=== PATIENT | male | born 1960 | race African-American/Black ===

== ENCOUNTER 2016-12-17 14:10 | Observation (INO) | payer MEDICAID, OTHER ==
[~2016-12-17] VITALS: Ht 170.2 cm; Wt 90.7 kg
[~2016-12-17 14:10] MED LIST: ASPI81CH59 PO; CARI-277 PO; CLOP75TA41 PO; DICY10CA55 PO; ENAL2.5T PO; INSUINJ37 SC; LINA5TAB PO; METF-370 PO; METO25TA62 PO; METO5TAB2 PO; NOR10T PO; PANTOPRAZOLE PO; QUET100T46 PO; SERT-274 PO; SIMV-13 PO; SUCR1TAB PO; TRAM50TA2 PO; [UNRECOGNIZED DRUG - CODE] PO
[2016-12-17] MEDS ORDERED: ONDANSETRON HCL 4 MG/2 ML VIAL IV ONE ×2 (14:45→15:15)
[2016-12-17 14:59] LABS: Basophils # (auto) 0 uL; Basophils % (auto) 0.4 % (0.0-2.0); Eosinophils # (auto) 0 uL; Eosinophils % (auto) 0.1 % (0.0-7.0); Hematocrit 38.6 % (41.0-53.0); Hemoglobin 13.2 g/dL (13.5-17.5); Mean Corpuscular Hemoglobin 29.4 pg (28.0-32.0); Mean Corpuscular Hgb Conc. 34.3 g/dL (32.0-36.0); Mean Corpuscular Volume 85.8 fL (80.0-100.0); Mean Platelet Volume 8.8 fL (7.4-10.4); Monocytes # (auto) 0.7 uL; Monocytes % (auto) 7.1 % (0.0-12.0); Neutrophils # (auto) 8.5 uL; Neutrophils % (auto) 82.4 % (37.0-80.0); Nucleated Red Blood Cells % 0.1 %; Platelet Count (auto) 189 10^3/uL (140-450); Red Cell Distribution Width 13.7 % (11.6-16.0); White Blood Cell 10.4 10^3/uL (4.4-10.8)
[2016-12-17] MEDS ORDERED: PANTOPRAZOLE 40 MG/10 ML VIAL IV STA (15:05)
[2016-12-17] MEDS ORDERED: ASPirin 81 mg TAB PO ONE (15:15)
[2016-12-17] MEDS ORDERED: HYDROmorphone HCL 2 MG/ML VL IV ONE (15:15)
[2016-12-17] MEDS ORDERED: cloNIDine HCL 0.1 MG TAB PO ONE (15:15)
[2016-12-17 15:22] LABS: Albumin 4.1 g/dL (3.4-5.0); Alkaline Phosphatase 77 U/L (45-117); Anion Gap 12 (5-15); Aspartate Aminotransferase 15 U/L (15-37); BUN/Creatinine Ratio 7.8; Bilirubin, Total 0.8 mg/dL (0.2-1.0); Blood Urea Nitrogen 9 mg/dL (7-18); Calcium 9.4 mg/dL (8.5-10.1); Carbon Dioxide 29 mmol/L (21-32); Chloride 97 mmol/L (98-107); GFR African American 85 mL/min; GFR Non-African American 70 mL/min; Glucose 271 mg/dL (74-106); Magnesium 2.1 mg/dL (1.6-2.6); Potassium 3.9 mmol/L (3.5-5.1); Sodium 138 mmol/L (136-145); Total Protein 8.1 g/dL (6.4-8.2)
[2016-12-17 15:48] LABS: Amylase 66 U/L (25-115)
[2016-12-17 17:29] LABS: Urine Bilirubin Negative (Negative); Urine Blood 1+ /uL (Negative); Urine Color Yellow (Yellow); Urine Glucose 4+ mg/dL (Normal); Urine Ketone 1+ (Negative); Urine Mucus FEW (None Seen); Urine Nitrite Negative (Negative); Urine RBC 11 /hpf (0 - 3); Urine Urobilinogen Normal (Negative)
[2016-12-17 18:59] VITALS: BP 142/78
== END 2016-12-17 19:14 | disposition home or self-care (01) | DRG 392 ==
LOC: ER 14:11 → OVERFLOW 15:08 → ER 19:14
PROVIDERS: ADMIT Family Medicine; ATTEND Family Medicine
DX: R10.13 Epigastric pain (principal); E86.0 Dehydration; R11.2 Nausea with vomiting, unspecified; F12.10 Cannabis abuse, uncomplicated
CPT/HCPCS: 36415; 71010; 74176; 80053; 80307; 80320; 81001; 82150; 83690; 83735; 84484; 85025; 93005; 96374; 96375; 99285; C9113; G0378; J1170; J2405

== ENCOUNTER 2016-12-18 17:21 | Emergency (ER) | payer OTHER ==
[~2016-12-18] VITALS: Ht 170.2 cm; Wt 90.7 kg
[2016-12-18] MEDS ORDERED: KETOROLAC TROMETH 30 MG/ML 1ML VIAL IV ONE (18:00)
[2016-12-18 18:23] LABS: Basophils # (auto) 0.1 uL; Basophils % (auto) 0.6 % (0.0-2.0); Eosinophils # (auto) 0 uL; Eosinophils % (auto) 0.5 % (0.0-7.0); Hematocrit 37.9 % (41.0-53.0); Hemoglobin 12.9 g/dL (13.5-17.5); Lymphocytes # (auto) 1.6 uL; Lymphocytes % (auto) 16.7 % (10.0-50.0); Mean Corpuscular Hemoglobin 29.5 pg (28.0-32.0); Mean Corpuscular Hgb Conc. 34.1 g/dL (32.0-36.0); Mean Corpuscular Volume 86.7 fL (80.0-100.0); Mean Platelet Volume 8.9 fL (7.4-10.4); Monocytes # (auto) 0.7 uL; Monocytes % (auto) 7.9 % (0.0-12.0); Neutrophils # (auto) 6.9 uL; Neutrophils % (auto) 74.3 % (37.0-80.0); Nucleated Red Blood Cells % 0.1 %; Platelet Count (auto) 185 10^3/uL (140-450); Red Cell Distribution Width 13.4 % (11.6-16.0); White Blood Cell 9.3 10^3/uL (4.4-10.8)
[2016-12-18 18:50] LABS: Albumin 3.7 g/dL (3.4-5.0); BUN/Creatinine Ratio 12.6; Bilirubin, Total 0.9 mg/dL (0.2-1.0); Calcium 8.8 mg/dL (8.5-10.1); Potassium 3.5 mmol/L (3.5-5.1); Total Protein 7.1 g/dL (6.4-8.2)
[2016-12-18] MEDS ORDERED: SODIUM CHLORIDE 0.9% 1,000 ML IV ONE (19:45)
[2016-12-18] MEDS ORDERED: NALBUPHINE HCL 10 MG/1ml INJECTION IV ONE (19:45)
[2016-12-18] MEDS ORDERED: ONDANSETRON HCL 4 MG/2 ML VIAL IV ONE (19:45)
[2016-12-18 22:00] VITALS: BP 174/83
== END 2016-12-18 22:33 | disposition home or self-care (01) ==
LOC: EDBD 17:21 → ER 17:23
DX: K29.70 Gastritis, unspecified, without bleeding (principal); E11.65 Type 2 diabetes mellitus with hyperglycemia; Z88.6 Allergy status to analgesic agent; Z79.82 Long term (current) use of aspirin; Z79.4 Long term (current) use of insulin
CPT/HCPCS: 36415; 80053; 82962; 83690; 85025; 96374; 96375; 99284; J1885; J2300; J2405; J7030

== ENCOUNTER 2022-07-17 03:45 | Inpatient (IN) | payer OTHER, MEDICAID ==
[~2022-07-17] VITALS: Ht 170.2 cm; Wt 95.3 kg
[2022-07-17] VITALS (7 sets, daily range): BP systolic 111–148; BP diastolic 60–85
[~2022-07-17 03:45] MED LIST changes: -CLOP75TA41 PO; +CLOP75TA70 PO; -ENAL2.5T PO; +ENAL2.5T7 PO; -METO25TA62 PO; +METO25TA93 PO; -QUET100T46 PO; +QUET100T47 PO; -SERT-274 PO; +SERT50TA19 PO
[2022-07-17] MEDS ORDERED: MORPHINE SULFATE INJ 2 MG/ml SYRG IV PRN (04:45)
[2022-07-17] MEDS ORDERED: HYDROcodone-ACET 5/325MG TAB PO PRN (04:45)
[2022-07-17] MEDS ORDERED: DEXTROSE (50%) 50ML SYRG IV PRN (04:45)
[2022-07-17] MEDS ORDERED: DOCUSATE SOD 100 MG CAP PO PRN (04:45)
[2022-07-17] MEDS ORDERED: hydrALAZINE HCL 20 MG/ML VL IV PRN (04:45)
[2022-07-17] MEDS ORDERED: IPRATROPIUM BROM 0.5 MG/2.5ML INH SOL NEB PRN (04:45)
[2022-07-17] MEDS ORDERED: ONDANSETRON HCL 4 MG/2 ML VIAL IV PRN (04:45)
[2022-07-17] MEDS ORDERED: NITROGLYCERIN 0.4 MG SL TAB SL PRN (04:45)
[2022-07-17] MEDS ORDERED: ACETAMINOPHEN 325 MG TAB PO PRN (04:45)
[2022-07-17] MEDS ORDERED: PNEUMOCOCCAL VACC POLYS 25 MCG/0.5 ML VIAL IM ONE (05:30)
[2022-07-17] MEDS: methylPREDNISolone SOD SUCC 40 MG/ML VL IV SCH ×3 (06:09→21:43)
[2022-07-17] MEDS: ACCU-CHEK COMFORT CURVE STRIP VI SCH ×4 (06:13→21:43)
[2022-07-17] MEDS: InsuLIN REG 1unit/0.01ml Soln (100units/ml) SC SCH ×4 (06:15→21:47)
[2022-07-17] MEDS ORDERED: LISI40TA11 PO (07:04)
[2022-07-17] MEDS ORDERED: METF-372 PO (07:04)
[2022-07-17] MEDS ORDERED: PERCOT PO (07:04)
[2022-07-17 08:05] LABS: Basophils # (auto) 0 10 ^3/uL (0-0.2); Eosinophils # (auto) 0.4 10 ^3/uL (0-0.8); Eosinophils % (auto) 10.1 % (0.0-7.0); Hematocrit 37.2 % (41.0-53.0); Hemoglobin 12.9 g/dL (13.5-17.5); Lymphocytes # (auto) 0.9 10 ^3/uL (0.4-5.4); Mean Corpuscular Hemoglobin 28.1 pg (28.0-32.0); Mean Corpuscular Hgb Conc. 34.6 g/dL (32.0-36.0); Mean Corpuscular Volume 81.2 fL (80.0-100.0); Monocytes # (auto) 0.4 10 ^3/uL (0-1.3); Monocytes % (auto) 9.4 % (0.0-12.0); Neutrophils # (auto) 2.6 10 ^3/uL (1.6-8.6); Neutrophils % (auto) 58.5 % (37.0-80.0); Nucleated Red Blood Cells % 0.3 %; Red Blood Cells 4.58 10^6/uL (4.5-5.90); Red Cell Distribution Width 15.9 % (11.8-14.3); White Blood Cell 4.4 10^3/uL (4.4-10.8)
[2022-07-17 08:30] LABS: BUN/Creatinine Ratio 9.2 (10.0-20.0); Calcium 8.1 mg/dL (8.5-10.1); Potassium 4.3 mmol/L (3.5-5.1)
[2022-07-17] MEDS ORDERED: METOPROLOL SUCCINATE XL 50 MG TAB PO SCH (10:00)
[2022-07-17] MEDS: PANTOPRAZOLE 40 MG/10 ML VIAL INJ IV SCH (10:47)
[2022-07-17] MEDS: ASPirin 81 mg TAB PO SCH (10:51)
[2022-07-17] MEDS: METOPROLOL TARTRATE 50 MG TAB PO SCH ×2 (10:52→21:43)
[2022-07-17] MEDS: ENOXAPARIN SOD 40 MG/0.4 ML SYRINGE SC SCH (10:53)
[2022-07-17] MEDS: ALBUTEROL SULF 2.5 MG/0.5ML(0.5%) NEB SOLN NEB PRN (11:00)
[2022-07-17 11:52] LABS: INR 1.02 (0.9-1.15)
[2022-07-17] MEDS: HYDROcodone-ACET 7.5/325MG TAB PO PRN (20:14)
[2022-07-17] MEDS: ATORVASTATIN 20 MG TAB PO SCH (21:43)
[2022-07-18 05:00] VITALS: BP 127/69
[2022-07-18 05:40] LABS: Basophils # (auto) 0 10 ^3/uL (0-0.2); Basophils % (auto) 0.2 % (0.0-2.0); Eosinophils # (auto) 0 10 ^3/uL (0-0.8); Hematocrit 36.8 % (41.0-53.0); Hemoglobin 12.4 g/dL (13.5-17.5); Lymphocytes # (auto) 0.8 10 ^3/uL (0.4-5.4); Lymphocytes % (auto) 12.9 % (10.0-50.0); Mean Corpuscular Hgb Conc. 33.6 g/dL (32.0-36.0); Mean Corpuscular Volume 83.4 fL (80.0-100.0); Monocytes # (auto) 0.3 10 ^3/uL (0-1.3); Monocytes % (auto) 5.5 % (0.0-12.0); Neutrophils # (auto) 4.8 10 ^3/uL (1.6-8.6); Neutrophils % (auto) 81.4 % (37.0-80.0); Red Blood Cells 4.42 10^6/uL (4.5-5.90); Red Cell Distribution Width 15.8 % (11.8-14.3); White Blood Cell 5.9 10^3/uL (4.4-10.8)
[2022-07-18 05:49] LABS: BUN/Creatinine Ratio 17.1 (10.0-20.0); Calcium 8.6 mg/dL (8.5-10.1); Potassium 5.1 mmol/L (3.5-5.1)
[2022-07-18] MEDS: methylPREDNISolone SOD SUCC 40 MG/ML VL IV SCH (06:12)
[2022-07-18] MEDS: HYDROcodone-ACET 7.5/325MG TAB PO PRN ×2 (06:12→21:36)
[2022-07-18] MEDS: ACCU-CHEK COMFORT CURVE STRIP VI SCH ×4 (06:16→21:32)
[2022-07-18] MEDS: InsuLIN REG 1unit/0.01ml Soln (100units/ml) SC SCH ×4 (06:18→21:34)
[2022-07-18 08:00] VITALS: BP 154/84
[2022-07-18] MEDS: ASPirin 81 mg TAB PO SCH (09:19)
[2022-07-18] MEDS: PANTOPRAZOLE 40 MG/10 ML VIAL INJ IV SCH (09:19)
[2022-07-18] MEDS: METOPROLOL TARTRATE 50 MG TAB PO SCH ×2 (09:20→21:32)
[2022-07-18] MEDS: ENOXAPARIN SOD 40 MG/0.4 ML SYRINGE SC SCH (09:20)
[2022-07-18 12:00] VITALS: BP 143/72
[2022-07-18 16:00] VITALS: BP 133/68
[2022-07-18] MEDS: ATORVASTATIN 20 MG TAB PO SCH (21:32)
[2022-07-18 22:00] VITALS: BP 162/89
[2022-07-19 05:00] VITALS: BP 136/81
[2022-07-19 06:04] LABS: Basophils # (auto) 0.1 10 ^3/uL (0-0.2); Basophils % (auto) 0.7 % (0.0-2.0); Eosinophils # (auto) 0.1 10 ^3/uL (0-0.8); Eosinophils % (auto) 1.2 % (0.0-7.0); Hemoglobin 12.4 g/dL (13.5-17.5); Lymphocytes # (auto) 2.6 10 ^3/uL (0.4-5.4); Lymphocytes % (auto) 30.9 % (10.0-50.0); Mean Corpuscular Hemoglobin 27.9 pg (28.0-32.0); Mean Corpuscular Hgb Conc. 34.5 g/dL (32.0-36.0); Mean Corpuscular Volume 80.8 fL (80.0-100.0); Monocytes # (auto) 0.8 10 ^3/uL (0-1.3); Monocytes % (auto) 9.3 % (0.0-12.0); Neutrophils % (auto) 57.9 % (37.0-80.0); Nucleated Red Blood Cells % 1.1 %; Red Blood Cells 4.46 10^6/uL (4.5-5.90); Red Cell Distribution Width 16.1 % (11.8-14.3); White Blood Cell 8.6 10^3/uL (4.4-10.8)
[2022-07-19 06:22] LABS: Potassium 4.3 mmol/L (3.5-5.1)
[2022-07-19] MEDS: ACCU-CHEK COMFORT CURVE STRIP VI SCH ×2 (06:22→11:58)
[2022-07-19] MEDS: InsuLIN REG 1unit/0.01ml Soln (100units/ml) SC SCH (06:22)
[2022-07-19 06:26] LABS: BUN/Creatinine Ratio 17.2 (10.0-20.0); Calcium 8.4 mg/dL (8.5-10.1)
[2022-07-19] MEDS ORDERED: IPRATROPIUM BROM 0.5 MG/2.5ML INH SOL ONE (07:22)
[2022-07-19] MEDS ORDERED: ALBUTEROL SULF 2.5 MG/0.5ML(0.5%) NEB SOLN ONE ×2 (07:23→11:33)
[2022-07-19] MEDS: ALBUTEROL SULF 2.5 MG/0.5ML(0.5%) NEB SOLN NEB PRN (07:28)
[2022-07-19 09:00] VITALS: BP 146/79
[2022-07-19] MEDS: ASPirin 81 mg TAB PO SCH (10:00)
[2022-07-19] MEDS ORDERED: NICOTINE 7MG/24HR TOPICAL PATCH TD SCH ×2 (10:00→13:35)
[2022-07-19] MEDS ORDERED: predniSONE 20 MG TAB PO SCH (10:00)
[2022-07-19] MEDS: ENOXAPARIN SOD 40 MG/0.4 ML SYRINGE SC SCH (10:00)
[2022-07-19] MEDS: METOPROLOL TARTRATE 50 MG TAB PO SCH (10:00)
[2022-07-19] MEDS ORDERED: ANGIOMAX 250 MG VIAL IV ONE (10:18)
[2022-07-19] MEDS ORDERED: VERAPAMIL 2.5MG/ML INJ 2ML VIAL IV ONE (10:18)
[2022-07-19] MEDS ORDERED: HEPARIN SODIUM (PORCINE) 5000 UNITS/ML 1ML VIAL ONE (10:18)
[2022-07-19] MEDS ORDERED: fentaNYL CITRATE 100 MCG/2 ML VL ONE (10:18)
[2022-07-19] MEDS ORDERED: SODIUM CHL 0.9% 0 ML ONE (10:19)
[2022-07-19] MEDS ORDERED: IODIXANOL 320MG/ML 100ML BTL IV ONE (10:19)
[2022-07-19] MEDS ORDERED: MIDAZOLAM HCL 2MG/2ML 2ml VIAL (1mg/ml) ONE (10:19)
[2022-07-19] MEDS ORDERED: LIDOCAINE 2%HCL (LOCAL ANESTH.) INJ 10ml MDV ONE (10:20)
[2022-07-19] MEDS ORDERED: ALBUAER3 IN (10:30)
[2022-07-19] MEDS ORDERED: PRED20TA2 PO (10:30)
[2022-07-19] MEDS ORDERED: ATOR20TA50 PO (10:30)
[2022-07-19] MEDS ORDERED: MET50T PO (10:30)
[2022-07-19 11:25] VITALS: BP 160/92
[2022-07-19 11:45] VITALS: BP 161/96
[2022-07-19 12:06] LABS: Hepatitis C Antibody Negative (Negative)
[2022-07-19 13:00] VITALS: BP 153/79
[2022-07-19] MEDS ORDERED: InsuLIN REG 1unit/0.01ml Soln (100units/ml) SC SCH (13:00)
[2022-07-19] MEDS ORDERED: PANTOPRAZOLE 40 MG/10 ML VIAL INJ IV SCH (13:35)
[2022-07-20] MEDS ORDERED: predniSONE 20 MG TAB PO SCH (13:35)
== END 2022-07-19 15:30 | disposition left against medical advice (07) | DRG 281 ==
LOC: TELE-EAST 03:45 → UNDOADMIN 03:45 → TELE-EAST 04:43 → OBSVTOIN 07-19 11:13
PROVIDERS: ADMIT Nurse Practitioner Family; ATTEND Internal Medicine
PROC: B211YZZ Fluoroscopy of Multiple Coronary Arteries using Other Contrast (ICD-10-PCS; principal; 2022-07-19)
DX: I21.4 Non-ST elevation (NSTEMI) myocardial infarction (principal); J44.1 Chronic obstructive pulmonary disease with (acute) exacerbation; I25.10 Atherosclerotic heart disease of native coronary artery without angina pectoris; E78.5 Hyperlipidemia, unspecified; E11.9 Type 2 diabetes mellitus without complications; F41.9 Anxiety disorder, unspecified; F32.9 Major depressive disorder, single episode, unspecified; I10 Essential (primary) hypertension; Z20.822 Contact with and (suspected) exposure to COVID-19; Z79.899 Other long term (current) drug therapy; Z53.21 Procedure and treatment not carried out due to patient leaving prior to being seen by health care provider
CPT/HCPCS: 36415; 71045; 80048; 82962; 84484; 85025; 85610; 86803; 87340; 87426; 93306; 93454; 94640; 99152; C9113; G0378; J1815; J2001; J2250; Q9967

== ENCOUNTER 2022-12-10 02:33 | Inpatient (IN) | payer MEDICAID, OTHER ==
[~2022-12-10] VITALS: Ht 170.2 cm; Wt 90.0 kg
[2022-12-10] VITALS (12 sets, daily range): BP systolic 141–154; BP diastolic 72–92; PULSE 52–98; RESP 14–20; TEMP 97.8–98.6; O2SAT 93–98
[~2022-12-10 02:33] MED LIST changes: +ALBUAER3 IN; +ATOR20TA50 PO; +ENAL1TAB42 PO; -ENAL2.5T7 PO; +MET50T PO; -METF-370 PO; +METF-372 PO; -NOR10T PO; +PRED20TA2 PO; +SERT-206 PO; -SERT50TA19 PO; -SIMV-13 PO; +SIMV40TA18 PO; -[UNRECOGNIZED DRUG - CODE] PO
[2022-12-10] MEDS ORDERED: hydrALAZINE HCL 20 MG/ML VL IV PRN (06:00)
[2022-12-10] MEDS ORDERED: DOCUSATE SOD 100 MG CAP PO PRN (06:00)
[2022-12-10] MEDS ORDERED: ACETAMINOPHEN 325 MG TAB PO PRN (06:00)
[2022-12-10] MEDS ORDERED: IPRATROPIUM BROM 0.5 MG/2.5ML INH SOL NEB PRN (06:00)
[2022-12-10] MEDS ORDERED: METOCLOPRAMIDE HCL 5MG/ml INJ 2ml VIAL IV PRN (06:00)
[2022-12-10] MEDS ORDERED: MORPHINE SULFATE INJ 2 MG/ml SYRG IV PRN (06:00)
[2022-12-10] MEDS ORDERED: ALBUTEROL SULF 2.5 MG/0.5ML(0.5%) NEB SOLN NEB PRN (06:00)
[2022-12-10] MEDS ORDERED: NITROGLYCERIN 0.4 MG SL TAB SL PRN (06:00)
[2022-12-10] MEDS ORDERED: DEXTROSE (50%) 50ML SYRG IV PRN (06:00)
[2022-12-10 07:07] LABS: Amphetamine Screen, Urine Neg (NEGATIVE)
[2022-12-10 07:08] LABS: Barbiturate Scree,Urine Neg (NEGATIVE); Benzodiazephine Screen, Urine Neg (NEGATIVE); Cannabinoid Screen, Urine Neg (NEGATIVE); Cocaine Screen, Urine Neg (NEGATIVE); Opiate Scree,Urine Neg (NEGATIVE); Phencyclidine Screen, Urine Neg (NEGATIVE)
[2022-12-10] MEDS: InsuLIN REG 1unit/0.01ml Soln (100units/ml) SC SCH ×3 (07:46→17:08)
[2022-12-10] MEDS: ACCU-CHEK COMFORT CURVE STRIP VI SCH ×4 (07:46→22:19)
[2022-12-10 07:53] LABS: Basophils # (auto) 0 10 ^3/uL (0-0.2); Basophils % (auto) 0.9 % (0.0-2.0); Eosinophils # (auto) 0.3 10 ^3/uL (0-0.8); Eosinophils % (auto) 5.9 % (0.0-7.0); Hematocrit 39.4 % (41.0-53.0); Lymphocytes % (auto) 44.8 % (10.0-50.0); Mean Corpuscular Hemoglobin 29.9 pg (28.0-32.0); Mean Corpuscular Volume 90.5 fL (80.0-100.0); Monocytes # (auto) 0.5 10 ^3/uL (0-1.3); Monocytes % (auto) 10.2 % (0.0-12.0); Neutrophils # (auto) 1.7 10 ^3/uL (1.6-8.6); Neutrophils % (auto) 38.2 % (37.0-80.0); Nucleated Red Blood Cells % 0.1 %; Red Blood Cells 4.35 10^6/uL (4.5-5.90); Red Cell Distribution Width 15.5 % (11.8-14.3); White Blood Cell 4.5 10^3/uL (4.4-10.8)
[2022-12-10 08:29] LABS: Albumin 3.3 g/dL (3.2-4.8); Alkaline Phosphatase 84 U/L (46-116); Anion Gap 9.9 (5-15); Aspartate Aminotransferase 11 U/L (13-40); BUN/Creatinine Ratio 8.2 (10.0-20.0); Bilirubin, Total 0.6 mg/dL (0.2-1.0); Blood Urea Nitrogen 8 mg/dL (9-23); Calcium 8.4 mg/dL (8.5-10.1); Carbon Dioxide 23.1 mmol/L (20-30); Chloride 109 mmol/L (98-107); Glucose 135 mg/dL (74-106); Potassium 4.1 mmol/L (3.5-5.1); Sodium 142 mmol/L (136-145); Total Protein 5.7 g/dL (5.7-8.2)
[2022-12-10 08:32] LABS: Alanine Aminotransferase 9 U/L (7-40)
[2022-12-10] MEDS: PANTOPRAZOLE 40 MG/10 ML VIAL INJ IV SCH (09:58)
[2022-12-10] MEDS: ASPirin-EC 81 mg tab PO SCH (09:59)
[2022-12-10] MEDS: METOPROLOL TARTRATE 50 MG TAB PO SCH ×2 (09:59→22:17)
[2022-12-10] MEDS: ENOXAPARIN SOD 100 MG/1 ML SYRINGE SC SCH ×2 (10:35→22:19)
[2022-12-10] MEDS ORDERED: IODIXANOL 320MG/ML 100ML BTL IV ONE (13:51)
[2022-12-10] MEDS ORDERED: LIDOCAINE 2%HCL (LOCAL ANESTH.) INJ 20ML MDV ONE (13:52)
[2022-12-10] MEDS ORDERED: ANGIOMAX 250 MG VIAL IV ONE (15:04)
[2022-12-10] MEDS ORDERED: HEPARIN SODIUM (PORCINE) 5000 UNITS/ML 1ML VIAL ONE (15:04)
[2022-12-10] MEDS ORDERED: VERAPAMIL 2.5MG/ML INJ 2ML VIAL IV ONE (15:04)
[2022-12-10] MEDS ORDERED: fentaNYL CITRATE 100 MCG/2 ML VL ONE (15:05)
[2022-12-10] MEDS ORDERED: MIDAZOLAM HCL 2MG/2ML 2ml VIAL (1mg/ml) ONE (15:05)
[2022-12-10] MEDS ORDERED: IOHEXOL 350 MG/ML 100ML IJ ONE (15:05)
[2022-12-10] MEDS ORDERED: SODIUM CHL 0.9% 50 ML ONE (15:05)
[2022-12-10] MEDS ORDERED: ATORVASTATIN 20 MG TAB PO SCH (22:00)
[2022-12-10] MEDS ORDERED: InsuLIN REG 1unit/0.01ml Soln (100units/ml) SC SCH (22:00)
[2022-12-10] MEDS: HYDROcodone-ACET 5/325MG TAB PO PRN (22:18)
[2022-12-11] VITALS (7 sets, daily range): BP systolic 156–162; BP diastolic 84–85; PULSE 52–62; RESP 12–18; TEMP 97.4–98.4; O2SAT 99–100
[2022-12-11] MEDS: HYDROcodone-ACET 5/325MG TAB PO PRN ×2 (05:20→09:40)
[2022-12-11] MEDS: ACCU-CHEK COMFORT CURVE STRIP VI SCH ×2 (06:10→11:08)
[2022-12-11] MEDS: InsuLIN REG 1unit/0.01ml Soln (100units/ml) SC SCH ×2 (06:15→11:11)
[2022-12-11 06:45] LABS: Basophils # (auto) 0 10 ^3/uL (0-0.2); Basophils % (auto) 0.5 % (0.0-2.0); Eosinophils # (auto) 0.2 10 ^3/uL (0-0.8); Eosinophils % (auto) 3.1 % (0.0-7.0); Hematocrit 38.8 % (41.0-53.0); Hemoglobin 12.8 g/dL (13.5-17.5); Lymphocytes # (auto) 2.1 10 ^3/uL (0.4-5.4); Mean Corpuscular Hemoglobin 29.8 pg (28.0-32.0); Mean Corpuscular Hgb Conc. 32.9 g/dL (32.0-36.0); Mean Corpuscular Volume 90.5 fL (80.0-100.0); Monocytes # (auto) 0.6 10 ^3/uL (0-1.3); Monocytes % (auto) 8.4 % (0.0-12.0); Nucleated Red Blood Cells % 0.1 %; Red Blood Cells 4.29 10^6/uL (4.5-5.90); Red Cell Distribution Width 15.6 % (11.8-14.3); White Blood Cell 6.9 10^3/uL (4.4-10.8)
[2022-12-11 07:44] LABS: Anion Gap 8.7 (5-15); Carbon Dioxide 22.3 mmol/L (20-30); Chloride 108 mmol/L (98-107); Potassium 3.8 mmol/L (3.5-5.1); Sodium 139 mmol/L (136-145)
[2022-12-11 07:45] LABS: Calcium 8.7 mg/dL (8.5-10.1)
[2022-12-11 07:50] LABS: Glucose 210 mg/dL (74-106)
[2022-12-11 07:51] LABS: BUN/Creatinine Ratio 8.7 (10.0-20.0); Blood Urea Nitrogen 10 mg/dL (9-23)
[2022-12-11] MEDS: METOPROLOL TARTRATE 50 MG TAB PO SCH (09:39)
[2022-12-11] MEDS: ASPirin-EC 81 mg tab PO SCH (09:40)
[2022-12-11] MEDS: PANTOPRAZOLE 40 MG/10 ML VIAL INJ IV SCH (09:40)
[2022-12-11] MEDS: ENOXAPARIN SOD 100 MG/1 ML SYRINGE SC SCH (09:40)
[2022-12-11] MEDS ORDERED: RANO500T3 PO (12:48)
== END 2022-12-11 16:07 | disposition home or self-care (01) | DRG 282 ==
LOC: TELE-CENTR 05:28
PROVIDERS: ADMIT Nurse Practitioner Family; ATTEND Internal Medicine
PROC: B211YZZ Fluoroscopy of Multiple Coronary Arteries using Other Contrast (ICD-10-PCS; principal; 2022-12-10)
PROC: 4A023N7 Measurement of Cardiac Sampling and Pressure, Left Heart, Percutaneous Approach (ICD-10-PCS; 2022-12-10)
DX: I21.4 Non-ST elevation (NSTEMI) myocardial infarction (principal); E11.65 Type 2 diabetes mellitus with hyperglycemia; I11.0 Hypertensive heart disease with heart failure; J44.9 Chronic obstructive pulmonary disease, unspecified; E66.9 Obesity, unspecified; I25.10 Atherosclerotic heart disease of native coronary artery without angina pectoris; G89.29 Other chronic pain; I50.9 Heart failure, unspecified; M54.50 Low back pain, unspecified; R79.89 Other specified abnormal findings of blood chemistry; F10.20 Alcohol dependence, uncomplicated; I25.2 Old myocardial infarction; Z79.899 Other long term (current) drug therapy; Z80.3 Family history of malignant neoplasm of breast; Z82.49 Family history of ischemic heart disease and other diseases of the circulatory system; Z83.3 Family history of diabetes mellitus; Z86.73 Personal history of transient ischemic attack (TIA), and cerebral infarction without residual deficits; Z91.199 Patient's noncompliance with other medical treatment and regimen due to unspecified reason; Z98.61 Coronary angioplasty status; Z88.0 Allergy status to penicillin; Z88.5 Allergy status to narcotic agent; Z68.31 Body mass index [BMI] 31.0-31.9, adult
CPT/HCPCS: 36415; 80048; 80053; 80307; 82962; 83036; 84484; 85025; 87081; 93306; 93454; 99152; C9113; G0378; J1815; J2250; Q9967

== ENCOUNTER 2023-05-03 04:04 | Emergency (ER) | payer OTHER, MEDICAID ==
[~2023-05-03] VITALS: Ht 170.2 cm; Wt 84.0 kg
[~2023-05-03 04:04] MED LIST changes: +RANO500T3 PO
[2023-05-03 06:28] LABS: Eosinophils # (auto) 0.5 10 ^3/uL (0-0.8); Hemoglobin 11.2 g/dL (13.5-17.5); Neutrophils # (auto) 3.9 10 ^3/uL (1.6-8.6)
[2023-05-03 06:29] VITALS: BP 158/100; PULSE 82; RESP 13; TEMP 98.3; O2SAT 98
[2023-05-03 06:29] LABS: Chloride 108 mmol/L (98-107); Potassium 4.1 mmol/L (3.5-5.1); Sodium 142 mmol/L (136-145)
[2023-05-03 06:30] LABS: Anion Gap 7 (5-15); Calcium 8.8 mg/dL (8.5-10.1); Carbon Dioxide 27 mmol/L (20-30)
[2023-05-03] MEDS ORDERED: FUROSEMIDE 40 MG/4 ML VIAL IV ONE (06:30)
[2023-05-03 06:32] LABS: Basophils # (auto) 0.1 10 ^3/uL (0-0.2); Basophils % (auto) 0.8 % (0.0-2.0); Eosinophils % (auto) 6.7 % (0.0-7.0); Hematocrit 34.1 % (41.0-53.0); Lymphocytes # (auto) 2.3 10 ^3/uL (0.4-5.4); Mean Corpuscular Hgb Conc. 32.7 g/dL (32.0-36.0); Mean Corpuscular Volume 82.4 fL (80.0-100.0); Monocytes # (auto) 0.6 10 ^3/uL (0-1.3); Monocytes % (auto) 7.8 % (0.0-12.0); Neutrophils % (auto) 53.7 % (37.0-80.0); Red Blood Cells 4.14 10^6/uL (4.5-5.90); Red Cell Distribution Width 17.4 % (11.8-14.3); White Blood Cell 7.3 10^3/uL (4.4-10.8)
[2023-05-03 06:35] LABS: BUN/Creatinine Ratio 7.1 (10.0-20.0); Blood Urea Nitrogen 9 mg/dL (9-23); Glucose 245 mg/dL (74-106)
[2023-05-03 06:49] VITALS: PULSE 93
== END 2023-05-03 17:53 | disposition left against medical advice (07) ==
LOC: ER 04:04
DX: I11.0 Hypertensive heart disease with heart failure (principal); I50.33 Acute on chronic diastolic (congestive) heart failure; R10.84 Generalized abdominal pain; E78.5 Hyperlipidemia, unspecified; E11.9 Type 2 diabetes mellitus without complications; K21.9 Gastro-esophageal reflux disease without esophagitis; I25.10 Atherosclerotic heart disease of native coronary artery without angina pectoris; F32.9 Major depressive disorder, single episode, unspecified; F17.210 Nicotine dependence, cigarettes, uncomplicated; Z98.890 Other specified postprocedural states; Z88.8 Allergy status to other drugs, medicaments and biological substances; Z79.899 Other long term (current) drug therapy
CPT/HCPCS: 36415; 71045; 80048; 83880; 84484; 85025; 93005; 96374; 99285; J1940

== ENCOUNTER 2023-07-12 03:46 | Inpatient (IN) | payer OTHER, MEDICAID ==
[~2023-07-12] VITALS: Ht 170.2 cm; Wt 100.1 kg
[2023-07-12 04:19] LABS: Basophils # (auto) 0.1 10 ^3/uL (0-0.2); Eosinophils # (auto) 0.6 10 ^3/uL (0-0.8); Eosinophils % (auto) 9.2 % (0.0-7.0); Hematocrit 32.4 % (41.0-53.0); Hemoglobin 10.8 g/dL (13.5-17.5); Lymphocytes # (auto) 2.4 10 ^3/uL (0.4-5.4); Lymphocytes % (auto) 34.2 % (10.0-50.0); Mean Corpuscular Hemoglobin 27.6 pg (28.0-32.0); Mean Corpuscular Hgb Conc. 33.4 g/dL (32.0-36.0); Mean Corpuscular Volume 82.5 fL (80.0-100.0); Monocytes # (auto) 0.5 10 ^3/uL (0-1.3); Monocytes % (auto) 7.1 % (0.0-12.0); Neutrophils # (auto) 3.4 10 ^3/uL (1.6-8.6); Neutrophils % (auto) 48.5 % (37.0-80.0); Nucleated Red Blood Cells % 0.1 %; Red Blood Cells 3.93 10^6/uL (4.5-5.90); Red Cell Distribution Width 14.9 % (11.8-14.3); White Blood Cell 6.9 10^3/uL (4.4-10.8)
[2023-07-12 04:32] LABS: Albumin 3.5 g/dL (3.2-4.8); Alkaline Phosphatase 76 U/L (46-116); Anion Gap 5 (5-15); Aspartate Aminotransferase 17 U/L (13-40); Bilirubin, Total 0.7 mg/dL (0.2-1.0); Blood Urea Nitrogen 12 mg/dL (9-23); Carbon Dioxide 26 mmol/L (20-30); Chloride 110 mmol/L (98-107); Glucose 130 mg/dL (74-106); Magnesium 1.6 mg/dL (1.6-2.6); Potassium 3.6 mmol/L (3.5-5.1); Sodium 141 mmol/L (136-145); Total Protein 6.2 g/dL (5.7-8.2)
[2023-07-12 04:38] LABS: Alanine Aminotransferase 9 U/L (7-40)
[2023-07-12 04:44] LABS: INR 1.13 (0.9-1.15); Partial Thromboplastin Time 28.2 SEC (24.5-34.5); Prothrombin Time 11.8 sec (9.3-11.8)
[2023-07-12] MEDS: FUROSEMIDE 40 MG/4 ML VIAL IV ONE (06:48)
[2023-07-12] MEDS ORDERED: ONDANSETRON HCL 4 MG/2 ML VIAL IV PRN (20:30)
[2023-07-12] MEDS ORDERED: ACETAMINOPHEN 325 MG TAB PO PRN (20:30)
[2023-07-12] MEDS ORDERED: MORPHINE SULFATE INJ 2 MG/ml SYRG IV PRN (20:30)
[2023-07-12] MEDS ORDERED: NITROGLYCERIN 0.4 MG SL TAB SL PRN (20:30)
[2023-07-12] MEDS: HYDROcodone-ACET 5/325MG TAB PO PRN (21:20)
[2023-07-12] MEDS: FUROSEMIDE 40 MG/4 ML VIAL IV SCH (21:20)
[2023-07-12 23:42] VITALS: PULSE 72; RESP 18
[2023-07-13] VITALS (7 sets, daily range): BP systolic 136–149; BP diastolic 83–96; PULSE 67–75; RESP 17–20; TEMP 97.3–98.1; O2SAT 95–98
[2023-07-13] MEDS: ASPirin 81 mg TAB PO SCH (00:40)
[2023-07-13] MEDS: MELATONIN 5 MG TAB PO PRN (00:40)
[2023-07-13 07:34] LABS: Anion Gap 6 (5-15); Carbon Dioxide 27 mmol/L (20-30); Chloride 108 mmol/L (98-107); Potassium 3.8 mmol/L (3.5-5.1); Sodium 141 mmol/L (136-145)
[2023-07-13 07:35] LABS: Calcium 8.6 mg/dL (8.5-10.1)
[2023-07-13 07:40] LABS: BUN/Creatinine Ratio 12.3 (10.0-20.0); Blood Urea Nitrogen 16 mg/dL (9-23); Glucose 104 mg/dL (74-106)
[2023-07-13] MEDS ORDERED: ASPirin 81 mg TAB PO SCH (10:00)
[2023-07-13] MEDS: PANTOPRAZOLE 40 MG/10 ML VIAL INJ IV SCH (11:15)
[2023-07-13] MEDS: ENOXAPARIN SOD 40 MG/0.4 ML SYRINGE SC SCH (11:15)
[2023-07-13] MEDS: ATORVASTATIN 20 MG TAB PO SCH (20:59)
[2023-07-14 01:00] VITALS: BP 110/71; PULSE 99; RESP 20; TEMP 97.5; O2SAT 95
[2023-07-14 05:00] VITALS: BP 130/75; PULSE 79; RESP 20; TEMP 97.6; O2SAT 96
[2023-07-14 07:04] LABS: Chloride 108 mmol/L (98-107); Potassium 3.8 mmol/L (3.5-5.1); Sodium 142 mmol/L (136-145)
[2023-07-14 07:06] LABS: Calcium 8.8 mg/dL (8.5-10.1)
[2023-07-14 07:10] LABS: Glucose 131 mg/dL (74-106)
[2023-07-14 07:11] LABS: BUN/Creatinine Ratio 12.9 (10.0-20.0); Blood Urea Nitrogen 16 mg/dL (9-23)
[2023-07-14 07:47] LABS: Anion Gap 4 (5-15); Carbon Dioxide 30 mmol/L (20-30)
[2023-07-14 08:00] VITALS: PULSE 76
[2023-07-14 08:25] VITALS: BP 140/90; PULSE 75; RESP 20; TEMP 97.7; O2SAT 98
[2023-07-14 09:13] LABS: Hepatitis B Surface Antigen Negative (Negative)
[2023-07-14 09:34] LABS: Hepatitis C Antibody Negative (Negative)
[2023-07-14] MEDS: hydrALAZINE HCL 20 MG/ML VL IV PRN (11:54)
[2023-07-14 12:30] VITALS: BP 152/93; PULSE 77; RESP 20; TEMP 98; O2SAT 99
[2023-07-14] MEDS ORDERED: FURO1TAB31 PO (15:53)
[2023-07-14 16:20] VITALS: BP 144/89; PULSE 80; RESP 20; TEMP 97.6; O2SAT 98
== END 2023-07-14 19:00 | disposition home or self-care (01) | DRG 291 ==
LOC: ER 03:46 → TELE-WESTW 20:31 → TELE 20:31 → TELE-WESTW 23:36
PROVIDERS: ADMIT Nurse Practitioner Family; ATTEND Nurse Practitioner Family
DX: I11.0 Hypertensive heart disease with heart failure (principal); I50.43 Acute on chronic combined systolic (congestive) and diastolic (congestive) heart failure; I25.10 Atherosclerotic heart disease of native coronary artery without angina pectoris; E78.5 Hyperlipidemia, unspecified; E11.9 Type 2 diabetes mellitus without complications; K21.9 Gastro-esophageal reflux disease without esophagitis; Z79.4 Long term (current) use of insulin; Z79.84 Long term (current) use of oral hypoglycemic drugs; Z80.3 Family history of malignant neoplasm of breast; Z86.73 Personal history of transient ischemic attack (TIA), and cerebral infarction without residual deficits; Z82.49 Family history of ischemic heart disease and other diseases of the circulatory system; Z83.3 Family history of diabetes mellitus; Z87.11 Personal history of peptic ulcer disease; Z87.891 Personal history of nicotine dependence
CPT/HCPCS: 36415; 71045; 80048; 80053; 83735; 83880; 84484; 85025; 85610; 85730; 86803; 87340; 93005; 93306; 96374; C9113; G0378

== ENCOUNTER 2024-01-25 11:45 | Inpatient (IN) | payer OTHER, MEDICAID ==
[~2024-01-25] VITALS: Ht 182.9 cm; Wt 100.3 kg
[2024-01-25] VITALS (36 sets, daily range): BP systolic 89–150; BP diastolic 44–81; PULSE 61–87; RESP 11–27; TEMP 91.6–97.7; O2SAT 92–100
[~2024-01-25 11:45] MED LIST changes: +FURO1TAB31 PO; -MET50T PO; -PRED20TA2 PO
[2024-01-25] MEDS ORDERED: DOBUTamine 1000MCG/ML 250 ML IV SCH (12:00)
[2024-01-25] MEDS: DOBUTamine 1000MCG/ML 250 ML IV ONE (12:15)
[2024-01-25] MEDS: IOHEXOL 350 MG/ML 100ML IJ ONE (12:16)
[2024-01-25] MEDS: DOPamine 1600MCG/ML D5W 250 ML IV ONE ×2 (12:16→16:44)
[2024-01-25] MEDS: DOPamine 1600MCG/ML D5W 250 ML IV SCH (12:25)
[2024-01-25 12:32] LABS: Basophils # (auto) 0 10 ^3/uL (0-0.2); Basophils % (auto) 0.7 % (0.0-2.0); Eosinophils # (auto) 0.4 10 ^3/uL (0-0.8); Eosinophils % (auto) 6.4 % (0.0-7.0); Hematocrit 34.3 % (41.0-53.0); Hemoglobin 11.9 g/dL (13.5-17.5); Lymphocytes # (auto) 1.8 10 ^3/uL (0.4-5.4); Lymphocytes % (auto) 27.4 % (10.0-50.0); Mean Corpuscular Hemoglobin 29.4 pg (28.0-32.0); Mean Corpuscular Hgb Conc. 34.7 g/dL (32.0-36.0); Mean Corpuscular Volume 84.7 fL (80.0-100.0); Monocytes # (auto) 0.4 10 ^3/uL (0-1.3); Monocytes % (auto) 5.5 % (0.0-12.0); Platelet Count (auto) 149 10^3/uL (140-450); Red Blood Cells 4.05 10^6/uL (4.5-5.90); Red Cell Distribution Width 13.6 % (11.8-14.3); White Blood Cell 6.7 10^3/uL (4.4-10.8)
[2024-01-25 12:42] LABS: Alanine Aminotransferase 18 U/L (7-40); Albumin 3.6 g/dL (3.2-4.8); Alkaline Phosphatase 78 U/L (46-116); Anion Gap 7 (5-15); Aspartate Aminotransferase 20 U/L (13-40); BUN/Creatinine Ratio 7.4 (10.0-20.0); Blood Urea Nitrogen 14 mg/dL (9-23); Calcium 9.1 mg/dL (8.7-10.4); Carbon Dioxide 25 mmol/L (20-31); Chloride 104 mmol/L (98-107); Glucose 374 mg/dL (74-106); Lactic Acid w/Reflex 2.1 mmol/L (0.4-2.0); Sodium 136 mmol/L (136-145)
[2024-01-25 12:43] LABS: Bilirubin, Total 1.2 mg/dL (0.2-1.0)
[2024-01-25 12:45] LABS: INR 1.03 (0.9-1.15); Partial Thromboplastin Time 25.6 SEC (24.5-34.5); Prothrombin Time 10.9 sec (9.3-11.8)
[2024-01-25] MEDS: fentaNYL CITRATE 100 MCG/2 ML VL IV ONE ×2 (12:53→13:30)
[2024-01-25] MEDS: ALBUTEROL SULF 2.5 MG/0.5ML(0.5%) NEB SOLN NEB ONE (13:00)
[2024-01-25] MEDS: IPRATROPIUM BROM 0.5 MG/2.5ML INH SOL NEB ONE (13:00)
[2024-01-25] MEDS: IPRATROPIUM BROM 0.5 MG/2.5ML INH SOL ONE (13:14)
[2024-01-25] MEDS: ALBUTEROL SULF 2.5 MG/0.5ML(0.5%) NEB SOLN ONE (13:14)
[2024-01-25] MEDS: KETOROLAC TROMETH 30 MG/ML 1ML VIAL ONE (13:36)
[2024-01-25] MEDS: KETOROLAC TROMETH 30 MG/ML 1ML VIAL IV ONE (13:36)
[2024-01-25] MEDS: ONDANSETRON HCL 4 MG/2 ML VIAL IV ONE (14:29)
[2024-01-25] MEDS: SODIUM CHL 0.9% 50 ML ONE ×2 (14:40→16:19)
[2024-01-25] MEDS: HEPARIN SODIUM (PORCINE) 5000 UNITS/ML 1ML VIAL ONE (14:40)
[2024-01-25] MEDS: ANGIOMAX 250 MG VIAL IV ONE ×3 (14:40→17:18)
[2024-01-25] MEDS: VERAPAMIL 2.5MG/ML INJ 2ML VIAL IV ONE (14:40)
[2024-01-25] MEDS: LIDOCAINE 2%HCL (LOCAL ANESTH.) INJ 20ML MDV ONE (14:45)
[2024-01-25] MEDS: IODIXANOL 320MG/ML 100ML BTL IV ONE ×2 (14:53→15:55)
[2024-01-25] MEDS: fentaNYL CITRATE 100 MCG/2 ML VL ONE (15:15)
[2024-01-25] MEDS: NOREPINEPHRINE 8 MG/250ML KIT 250 ML IV ONE (15:18)
[2024-01-25] MEDS: VANCOMYCIN HCL 1000 MG VL ONE (15:24)
[2024-01-25] MEDS: VANCOMYCIN 1GM/200ML PREMIX 250 ML IV ONE ×2 (15:25→18:10)
[2024-01-25] MEDS: CLOPIDOGREL BISULFATE 75 MG TAB ONE (15:54)
[2024-01-25] MEDS: MIDAZOLAM HCL 2MG/2ML 2ml VIAL (1mg/ml) ONE (15:55)
[2024-01-25 16:03] LABS: Base Excess -5.4 mmol/L (-2.0-3.0)
[2024-01-25] MEDS ORDERED: NITROGLYCERIN 0.4 MG SL TAB SL PRN (16:15)
[2024-01-25] MEDS ORDERED: DEXTROSE (50%) 50ML SYRG IV PRN (16:15)
[2024-01-25] MEDS ORDERED: ONDANSETRON HCL 4 MG/2 ML VIAL IV PRN (16:15)
[2024-01-25] MEDS ORDERED: MORPHINE SULFATE 4 MG/ML SYR/VIAL IV PRN (16:15)
[2024-01-25] MEDS ORDERED: VANCOMYCIN PER PHARMACY 0 MG IV SCH (17:00)
[2024-01-25 17:18] LABS: LDL Cholesterol 90 mg/dL (< 100); Triglycerides 166 mg/dL (< 150)
[2024-01-25 17:20] LABS: Cholesterol 160 mg/dL (< 200); HDL Cholesterol 42 mg/dL (40-59)
[2024-01-25] MEDS: ANGIOMAX 250 MG in SODIUM CHL 0.9% 50 ML IV ONE (17:24)
[2024-01-25] MEDS: CLOPIDOGREL BISULFATE 75 MG TAB PO ONE (17:26)
[2024-01-25] MEDS: methylPREDNISolone SOD SUCC 125 MG/2 ML VL IV ONE (17:26)
[2024-01-25] MEDS: NOREPINEPHRINE 8 MG/250ML KIT 250 ML IV SCH (17:27)
[2024-01-25] MEDS ORDERED: VANCOMYCIN 1GM/200ML PREMIX 250 ML IV SCH (17:30)
[2024-01-25] MEDS: ACCU-CHEK COMFORT CURVE STRIP VI SCH (18:00)
[2024-01-25] MEDS: D5W/SOD CHLO 0.9% 1,000 ML IV SCH (18:09)
[2024-01-25] MEDS: InsuLIN REG 1unit/0.01ml Soln (100units/ml) SC SCH (19:17)
[2024-01-25] MEDS: SODIUM CHLORIDE 0.9% 1,000 ML IV SCH (20:00)
[2024-01-25] MEDS: DOXYCYCLINE 100MG/250ML 250 ML IV SCH (20:02)
[2024-01-25] MEDS: InsuLIN REG 1unit/0.01ml Soln (100units/ml) SC ONE (20:05)
[2024-01-25] MEDS ORDERED: FAMOTIDINE 20 MG TAB PO SCH (22:00)
[2024-01-25] MEDS: TICAGRELOR 90 MG TAB PO SCH (22:00)
[2024-01-25] MEDS: ATORVASTATIN 20 MG TAB PO SCH (22:00)
[2024-01-25] MEDS: ACETYLCYSTEINE ORAL for CIN 20%(200MG/ML) 4ML PO SCH (22:00)
[2024-01-25] MEDS: INSULIN LANTUS (GLARGINE) 1 /0.01ml (100units/ml) SC SCH (22:18)
[2024-01-26] VITALS (90 sets, daily range): BP systolic 99–143; BP diastolic 42–80; PULSE 54–98; RESP 11–31; TEMP 96.6–98.2; O2SAT 93–100
[2024-01-26] MEDS: ACCU-CHEK COMFORT CURVE STRIP VI SCH (00:14)
[2024-01-26] MEDS: InsuLIN REG 1unit/0.01ml Soln (100units/ml) SC SCH (00:14)
[2024-01-26 05:18] LABS: Basophils # (auto) 0.1 10 ^3/uL (0-0.2); Basophils % (auto) 0.6 % (0.0-2.0); Eosinophils # (auto) 0 10 ^3/uL (0-0.8); Eosinophils % (auto) 0.1 % (0.0-7.0); Hematocrit 38.3 % (41.0-53.0); Hemoglobin 13.2 g/dL (13.5-17.5); Lymphocytes % (auto) 7.7 % (10.0-50.0); Mean Corpuscular Hgb Conc. 34.6 g/dL (32.0-36.0); Mean Corpuscular Volume 83.8 fL (80.0-100.0); Monocytes # (auto) 0.4 10 ^3/uL (0-1.3); Monocytes % (auto) 3.3 % (0.0-12.0); Neutrophils # (auto) 11.7 10 ^3/uL (1.6-8.6); Neutrophils % (auto) 88.3 % (37.0-80.0); Platelet Count (auto) 181 10^3/uL (140-450); Red Blood Cells 4.57 10^6/uL (4.5-5.90); Red Cell Distribution Width 13.3 % (11.8-14.3); White Blood Cell 13.2 10^3/uL (4.4-10.8)
[2024-01-26 05:32] LABS: Alanine Aminotransferase 15 U/L (7-40); Albumin 4.2 g/dL (3.2-4.8); Alkaline Phosphatase 88 U/L (46-116); Anion Gap 10 (5-15); Aspartate Aminotransferase 29 U/L (13-40); BUN/Creatinine Ratio 7.4 (10.0-20.0); Bilirubin, Total 0.9 mg/dL (0.2-1.0); Blood Urea Nitrogen 19 mg/dL (9-23); Calcium 9.6 mg/dL (8.7-10.4); Carbon Dioxide 21 mmol/L (20-31); Chloride 102 mmol/L (98-107); Potassium 3.9 mmol/L (3.5-5.1); Sodium 133 mmol/L (136-145); Total Protein 7.3 g/dL (5.7-8.2)
[2024-01-26 06:06] LABS: Glucose 146 mg/dL (74-106)
[2024-01-26] MEDS: ASPirin-EC 81 mg tab PO SCH (10:00)
[2024-01-26] MEDS: FAMOTIDINE 20 MG TAB PO SCH (10:00)
[2024-01-26] MEDS: ENOXAPARIN SOD 40 MG/0.4 ML SYRINGE SC SCH (10:02)
[2024-01-26] MEDS: FUROSEMIDE 40 MG/4 ML VIAL IV SCH (11:00)
[2024-01-26] MEDS: SODIUM CHLORIDE 0.9% 1,000 ML IV SCH (11:05)
[2024-01-26 12:06] LABS: Magnesium 1.5 mg/dL (1.6-2.6)
[2024-01-26] MEDS: diphenhdrAMINE HCL 50 MG/1 ML VL IV ONE (13:47)
[2024-01-26] MEDS: diphenhdrAMINE HCL 50 MG/1 ML VL ONE (13:48)
[2024-01-26] MEDS: MORPHINE SULFATE 4 MG/ML SYR/VIAL IV ONE (14:00)
[2024-01-26 14:06] LABS: Base Excess -4.2 mmol/L (-2.0-3.0)
[2024-01-26 14:36] LABS: Urine Bacteria FEW /hpf (None Seen); Urine Blood TRACE /uL (Negative); Urine Clarity Clear (Clear); Urine Color Light-Yellow (Yellow); Urine Protein, UAD 2+ (Negative); Urine Specific Gravity 1.037 (1.001-1.035); Urine Urobilinogen Normal (Negative); Urine WBC 2 /hpf (0 - 3); Urine pH 5.5 (5.0-9.0)
[2024-01-26 14:40] LABS: Sodium Urine 29 mmol/L (40-220)
[2024-01-26 14:46] LABS: Protein, Urine 128.5 mg/dL (1-14)
[2024-01-26 14:47] LABS: Amphetamine Screen, Urine Neg (NEGATIVE); Barbiturate Scree,Urine Neg (NEGATIVE); Benzodiazephine Screen, Urine Pos (NEGATIVE); Cocaine Screen, Urine Neg (NEGATIVE); Opiate Scree,Urine Neg (NEGATIVE)
[2024-01-26 14:48] LABS: Cannabinoid Screen, Urine Neg (NEGATIVE); Phencyclidine Screen, Urine Neg (NEGATIVE)
[2024-01-26 15:33] LABS: Creatinine, Urine 56.28 mg/dL (30.0-125.0); Urine Protein/Creatinine Ratio 2.28
[2024-01-26] MEDS: LORazepam 2MG/ML-1ML VIAL IV ONE (16:35)
[2024-01-26] MEDS: QUEtiapine FUMARATE 25 MG TAB PO SCH (22:00)
[2024-01-26] MEDS: chlordiazePOXIDE HCL 5 MG CAP PO SCH (22:00)
[2024-01-27] VITALS (17 sets, daily range): BP systolic 124–159; BP diastolic 51–97; PULSE 61–79; RESP 12–21; TEMP 96.8–98.1; O2SAT 92–100
[2024-01-27] MEDS: DEXTROSE (50%) 50ML SYRG IV PRN (00:12)
[2024-01-27 05:12] LABS: Basophils # (auto) 0.1 10 ^3/uL (0-0.2); Basophils % (auto) 0.7 % (0.0-2.0); Eosinophils # (auto) 0.6 10 ^3/uL (0-0.8); Eosinophils % (auto) 4.6 % (0.0-7.0); Hematocrit 32.8 % (41.0-53.0); Hemoglobin 11.2 g/dL (13.5-17.5); Lymphocytes # (auto) 1.6 10 ^3/uL (0.4-5.4); Lymphocytes % (auto) 12.7 % (10.0-50.0); Mean Corpuscular Hemoglobin 29.1 pg (28.0-32.0); Mean Corpuscular Hgb Conc. 34.1 g/dL (32.0-36.0); Mean Corpuscular Volume 85.3 fL (80.0-100.0); Monocytes # (auto) 0.7 10 ^3/uL (0-1.3); Monocytes % (auto) 5.7 % (0.0-12.0); Neutrophils # (auto) 9.7 10 ^3/uL (1.6-8.6); Neutrophils % (auto) 76.3 % (37.0-80.0); Nucleated Red Blood Cells % 0.1 %; Platelet Count (auto) 143 10^3/uL (140-450); Red Blood Cells 3.85 10^6/uL (4.5-5.90); Red Cell Distribution Width 13.3 % (11.8-14.3); White Blood Cell 12.7 10^3/uL (4.4-10.8)
[2024-01-27 05:43] LABS: Chloride 104 mmol/L (98-107); Potassium 4.1 mmol/L (3.5-5.1); Sodium 137 mmol/L (136-145)
[2024-01-27 05:44] LABS: Anion Gap 11 (5-15); Calcium 8.7 mg/dL (8.7-10.4); Carbon Dioxide 22 mmol/L (20-31)
[2024-01-27 05:49] LABS: BUN/Creatinine Ratio 7.2 (10.0-20.0); Glucose 75 mg/dL (74-106)
[2024-01-27 05:53] LABS: Blood Urea Nitrogen 33 mg/dL (9-23)
[2024-01-27] MEDS: SERTRALINE HCL 50 MG TAB PO SCH (10:37)
[2024-01-27] MEDS ORDERED: hydrALAZINE HCL 20 MG/ML VL IV PRN (15:00)
[2024-01-27] MEDS ORDERED: CARVEDILOL 12.5 MG TAB PO SCH (15:27)
[2024-01-27] MEDS: LIDOCAINE 2% JELLY 11ml (GLYDO) UR ONE (15:45)
[2024-01-27] MEDS: chlordiazePOXIDE HCL 5 MG CAP PO SCH (22:31)
[2024-01-27] MEDS: FUROSEMIDE 40 MG/4 ML VIAL IV SCH (22:37)
[2024-01-27] MEDS: CARVEDILOL 12.5 MG TAB PO SCH (22:43)
[2024-01-28] VITALS (8 sets, daily range): BP systolic 121–164; BP diastolic 70–95; PULSE 53–81; RESP 18–22; TEMP 97.6–98.4; O2SAT 95–100
[2024-01-28 06:54] LABS: Basophils # (auto) 0.1 10 ^3/uL (0-0.2); Basophils % (auto) 0.7 % (0.0-2.0); Eosinophils # (auto) 0.6 10 ^3/uL (0-0.8); Eosinophils % (auto) 6.4 % (0.0-7.0); Hematocrit 33.7 % (41.0-53.0); Hemoglobin 11.8 g/dL (13.5-17.5); Lymphocytes # (auto) 1.2 10 ^3/uL (0.4-5.4); Lymphocytes % (auto) 13.2 % (10.0-50.0); Mean Corpuscular Hemoglobin 29.5 pg (28.0-32.0); Mean Corpuscular Volume 84.3 fL (80.0-100.0); Monocytes # (auto) 0.8 10 ^3/uL (0-1.3); Monocytes % (auto) 9.4 % (0.0-12.0); Neutrophils # (auto) 6.4 10 ^3/uL (1.6-8.6); Neutrophils % (auto) 70.3 % (37.0-80.0); Platelet Count (auto) 150 10^3/uL (140-450); Red Cell Distribution Width 13.5 % (11.8-14.3); White Blood Cell 9.1 10^3/uL (4.4-10.8)
[2024-01-28 07:05] LABS: Potassium 3.9 mmol/L (3.5-5.1)
[2024-01-28 07:11] LABS: Albumin 3.5 g/dL (3.2-4.8); BUN/Creatinine Ratio 6.4 (10.0-20.0)
[2024-01-28 07:13] LABS: Phosphorus 5.1 mg/dL (2.4-5.1)
[2024-01-28] MEDS: ENOXAPARIN SOD 30 MG/0.3 ML SYRINGE SC SCH (09:52)
[2024-01-28] MEDS: FAMOTIDINE 20 MG TAB PO SCH (09:56)
[2024-01-28] MEDS ORDERED: LISINOPRIL 5 MG TAB PO SCH (10:00)
[2024-01-28] MEDS ORDERED: CLOPIDOGREL BISULFATE 75 MG TAB PO SCH (10:00)
[2024-01-28] MEDS: MORPHINE SULFATE INJ 2 MG/ml SYRG IV PRN ×2 (10:27→22:18)
[2024-01-29] VITALS (8 sets, daily range): BP systolic 117–158; BP diastolic 71–88; PULSE 50–66; RESP 19–22; TEMP 97.5–97.9; O2SAT 98–100
[2024-01-29 06:53] LABS: Basophils # (auto) 0.1 10 ^3/uL (0-0.2); Basophils % (auto) 0.6 % (0.0-2.0); Eosinophils # (auto) 0.6 10 ^3/uL (0-0.8); Eosinophils % (auto) 7.2 % (0.0-7.0); Hematocrit 35.3 % (41.0-53.0); Hemoglobin 12.1 g/dL (13.5-17.5); Lymphocytes # (auto) 1.6 10 ^3/uL (0.4-5.4); Lymphocytes % (auto) 19.2 % (10.0-50.0); Mean Corpuscular Hemoglobin 29.3 pg (28.0-32.0); Mean Corpuscular Hgb Conc. 34.2 g/dL (32.0-36.0); Mean Corpuscular Volume 85.8 fL (80.0-100.0); Monocytes # (auto) 0.9 10 ^3/uL (0-1.3); Monocytes % (auto) 10.6 % (0.0-12.0); Neutrophils # (auto) 5.3 10 ^3/uL (1.6-8.6); Neutrophils % (auto) 62.4 % (37.0-80.0); Platelet Count (auto) 160 10^3/uL (140-450); Red Blood Cells 4.12 10^6/uL (4.5-5.90); Red Cell Distribution Width 13.5 % (11.8-14.3); White Blood Cell 8.4 10^3/uL (4.4-10.8)
[2024-01-29 07:04] LABS: Chloride 104 mmol/L (98-107); Potassium 4.1 mmol/L (3.5-5.1); Sodium 136 mmol/L (136-145)
[2024-01-29 07:05] LABS: Anion Gap 12 (5-15); Calcium 9.2 mg/dL (8.7-10.4); Carbon Dioxide 20 mmol/L (20-31)
[2024-01-29 07:10] LABS: BUN/Creatinine Ratio 6.2 (10.0-20.0); Glucose 95 mg/dL (74-106)
[2024-01-29 07:17] LABS: Blood Urea Nitrogen 48 mg/dL (9-23)
[2024-01-29] MEDS ORDERED: SODIUM CHLORIDE 0.9% 1,000 ML IV SCH (11:45)
[2024-01-29] MEDS: SODIUM CHLORIDE 0.9% 1,000 ML IV ONE (16:47)
[2024-01-29] MEDS: SODIUM CHLORIDE 0.9% 1,000 ML IV SCH (18:50)
[2024-01-30] VITALS (9 sets, daily range): BP systolic 141–158; BP diastolic 72–94; PULSE 53–68; RESP 19–22; TEMP 95.9–97.7; O2SAT 99–100
[2024-01-30 07:41] LABS: Anion Gap 12 (5-15); Carbon Dioxide 19 mmol/L (20-31); Chloride 105 mmol/L (98-107); Sodium 136 mmol/L (136-145)
[2024-01-30 07:42] LABS: Calcium 8.9 mg/dL (8.7-10.4)
[2024-01-30 07:47] LABS: BUN/Creatinine Ratio 6.5 (10.0-20.0); Blood Urea Nitrogen 58 mg/dL (9-23); Glucose 66 mg/dL (74-106)
[2024-01-30] MEDS ORDERED: SACU1TAB PO (10:05)
[2024-01-30] MEDS ORDERED: OXYC325T14 PO (10:05)
[2024-01-30] MEDS ORDERED: BACL10TA PO (10:05)
[2024-01-30] MEDS ORDERED: HYDR25TA88 PO (10:05)
[2024-01-30] MEDS ORDERED: PANT40T PO (10:05)
[2024-01-30] MEDS ORDERED: METO5TAB2 PO (10:05)
[2024-01-30] MEDS ORDERED: METO1TAB9 PO (10:05)
[2024-01-30] MEDS ORDERED: ROSU40TA47 PO (10:05)
[2024-01-30] MEDS ORDERED: CARV12.544 PO (10:05)
[2024-01-30] MEDS ORDERED: NIFE90TA75 PO (10:05)
[2024-01-30] MEDS ORDERED: INSU1INJ14 SC (10:05)
[2024-01-30] MEDS: SODIUM CHLORIDE 0.9% 1,000 ML IV SCH (13:57)
[2024-01-31] VITALS (8 sets, daily range): BP systolic 140–166; BP diastolic 68–86; PULSE 51–61; RESP 16–22; TEMP 97.6–98.6; O2SAT 98–100
[2024-01-31 07:38] LABS: Carbon Dioxide 20 mmol/L (20-31); Chloride 105 mmol/L (98-107); Potassium 4.3 mmol/L (3.5-5.1)
[2024-01-31 07:39] LABS: Anion Gap 11 (5-15); Calcium 8.9 mg/dL (8.7-10.4); Sodium 136 mmol/L (136-145)
[2024-01-31 07:44] LABS: Glucose 104 mg/dL (74-106)
[2024-01-31 07:47] LABS: BUN/Creatinine Ratio 7.2 (10.0-20.0); Blood Urea Nitrogen 65 mg/dL (9-23)
[2024-01-31] MEDS: FAMOTIDINE 20 MG TAB PO SCH (10:08)
[2024-01-31] MEDS: QUEtiapine FUMARATE 25 MG TAB PO SCH (17:39)
[2024-01-31] MEDS: NIFEdipine ER 30 MG TAB PO SCH (17:53)
[2024-02-01] VITALS (12 sets, daily range): BP systolic 132–152; BP diastolic 69–85; PULSE 52–86; RESP 14–20; TEMP 97.5–97.9; O2SAT 97–100
[2024-02-01] MEDS: SODIUM CHL 0.9% 1000 ML BAG XX ONE (07:00)
[2024-02-01 07:05] LABS: Chloride 108 mmol/L (98-107); Potassium 4.5 mmol/L (3.5-5.1); Sodium 137 mmol/L (136-145)
[2024-02-01 07:06] LABS: Anion Gap 11 (5-15); Calcium 8.8 mg/dL (8.7-10.4); Carbon Dioxide 18 mmol/L (20-31)
[2024-02-01 07:11] LABS: BUN/Creatinine Ratio 6.6 (10.0-20.0); Glucose 85 mg/dL (74-106)
[2024-02-01 07:15] LABS: Basophils # (auto) 0 10 ^3/uL (0-0.2); Basophils % (auto) 0.6 % (0.0-2.0); Eosinophils # (auto) 0.5 10 ^3/uL (0-0.8); Eosinophils % (auto) 6.7 % (0.0-7.0); Hematocrit 32.9 % (41.0-53.0); Hemoglobin 11.1 g/dL (13.5-17.5); Lymphocytes # (auto) 1.5 10 ^3/uL (0.4-5.4); Lymphocytes % (auto) 21.5 % (10.0-50.0); Mean Corpuscular Hemoglobin 29.3 pg (28.0-32.0); Mean Corpuscular Hgb Conc. 33.9 g/dL (32.0-36.0); Mean Corpuscular Volume 86.5 fL (80.0-100.0); Monocytes # (auto) 0.7 10 ^3/uL (0-1.3); Monocytes % (auto) 9.9 % (0.0-12.0); Neutrophils # (auto) 4.3 10 ^3/uL (1.6-8.6); Neutrophils % (auto) 61.3 % (37.0-80.0); Nucleated Red Blood Cells % 0.1 %; Platelet Count (auto) 159 10^3/uL (140-450); Red Cell Distribution Width 13.6 % (11.8-14.3)
[2024-02-01 07:26] LABS: Blood Urea Nitrogen 54 mg/dL (9-23)
[2024-02-01] MEDS: LIDOCAINE 2%HCL (LOCAL ANESTH.) INJ 20ML MDV ONE (14:24)
[2024-02-01] MEDS: MIDAZOLAM HCL 2MG/2ML 2ml VIAL (1mg/ml) ONE (14:26)
[2024-02-01] MEDS: HEPARIN SODIUM (PORCINE) 5000 UNITS/ML 1ML VIAL ONE (14:27)
[2024-02-01] MEDS: fentaNYL CITRATE 100 MCG/2 ML VL ONE (14:28)
[2024-02-02] VITALS (11 sets, daily range): BP systolic 124–158; BP diastolic 65–89; PULSE 52–64; RESP 18–21; TEMP 97.6–98; O2SAT 95–98
[2024-02-03] VITALS (9 sets, daily range): BP systolic 109–151; BP diastolic 52–74; PULSE 51–68; RESP 16–19; TEMP 97.4–98.6; O2SAT 94–100
[2024-02-03 06:53] LABS: Basophils # (auto) 0 10 ^3/uL (0-0.2); Basophils % (auto) 0.6 % (0.0-2.0); Eosinophils # (auto) 0.4 10 ^3/uL (0-0.8); Eosinophils % (auto) 5.1 % (0.0-7.0); Hematocrit 32.2 % (41.0-53.0); Hemoglobin 11.3 g/dL (13.5-17.5); Lymphocytes # (auto) 1.6 10 ^3/uL (0.4-5.4); Lymphocytes % (auto) 20.2 % (10.0-50.0); Mean Corpuscular Hemoglobin 29.8 pg (28.0-32.0); Monocytes % (auto) 12.6 % (0.0-12.0); Neutrophils # (auto) 4.7 10 ^3/uL (1.6-8.6); Neutrophils % (auto) 61.5 % (37.0-80.0); Platelet Count (auto) 149 10^3/uL (140-450); Red Blood Cells 3.79 10^6/uL (4.5-5.90); Red Cell Distribution Width 13.4 % (11.8-14.3); White Blood Cell 7.7 10^3/uL (4.4-10.8)
[2024-02-03 07:06] LABS: Anion Gap 9 (5-15); Carbon Dioxide 25 mmol/L (20-31); Chloride 109 mmol/L (98-107); Potassium 3.7 mmol/L (3.5-5.1); Sodium 143 mmol/L (136-145)
[2024-02-03 07:07] LABS: Calcium 9.3 mg/dL (8.7-10.4)
[2024-02-03 07:12] LABS: BUN/Creatinine Ratio 9.2 (10.0-20.0); Blood Urea Nitrogen 37 mg/dL (9-23); Glucose 70 mg/dL (74-106)
[2024-02-03] MEDS: ACETAMINOPHEN 325 MG TAB PO PRN (13:11)
[2024-02-04] VITALS (8 sets, daily range): BP systolic 115–146; BP diastolic 61–72; PULSE 49–63; RESP 18–20; TEMP 97.7–98.8; O2SAT 95–100
[2024-02-04] MEDS: SODIUM CHL 0.9% 1000 ML BAG XX ONE (07:47)
[2024-02-04 16:31] LABS: Chloride 103 mmol/L (98-107); Potassium 3.9 mmol/L (3.5-5.1)
[2024-02-04 16:32] LABS: Anion Gap 7 (5-15); Calcium 9.5 mg/dL (8.7-10.4); Carbon Dioxide 25 mmol/L (20-31)
[2024-02-04 16:37] LABS: BUN/Creatinine Ratio 7.1 (10.0-20.0); Glucose 139 mg/dL (74-106)
[2024-02-04 16:51] LABS: Blood Urea Nitrogen 24 mg/dL (9-23); Sodium 135 mmol/L (136-145)
[2024-02-05] VITALS (8 sets, daily range): BP systolic 115–160; BP diastolic 65–74; PULSE 52–66; RESP 17–22; TEMP 98.3–98.7; O2SAT 97–100
[2024-02-05 07:51] LABS: Anion Gap 10 (5-15); Carbon Dioxide 24 mmol/L (20-31); Chloride 102 mmol/L (98-107); Potassium 3.4 mmol/L (3.5-5.1); Sodium 136 mmol/L (136-145)
[2024-02-05 07:52] LABS: Calcium 9.7 mg/dL (8.7-10.4)
[2024-02-05 07:57] LABS: BUN/Creatinine Ratio 8.4 (10.0-20.0); Blood Urea Nitrogen 27 mg/dL (9-23); Glucose 97 mg/dL (74-106)
[2024-02-06] VITALS (8 sets, daily range): BP systolic 104–135; BP diastolic 59–76; PULSE 57–63; RESP 16–20; TEMP 97.6–98.4; O2SAT 94–100
[2024-02-06] MEDS: diphenhdrAMINE HCL 25 MG CAP PO PRN (12:02)
[2024-02-06] MEDS: MORPHINE SULFATE INJ 2 MG/ml SYRG IV PRN (12:04)
[2024-02-06] MEDS: ERGOCALCIFEROL 50,000 UNIT(1.25MG) CAP PO SCH (13:14)
[2024-02-06] MEDS: HYDROcodone-ACET 5/325MG TAB PO PRN (19:54)
[2024-02-07] VITALS (8 sets, daily range): BP systolic 101–132; BP diastolic 59–71; PULSE 54–64; RESP 16–20; TEMP 97.7–98.4; O2SAT 97–100
[2024-02-07 21:44] LABS: Chloride 101 mmol/L (98-107); Potassium 3.6 mmol/L (3.5-5.1); Sodium 136 mmol/L (136-145)
[2024-02-07 21:45] LABS: Anion Gap 8 (5-15); Calcium 9.5 mg/dL (8.7-10.4); Carbon Dioxide 27 mmol/L (20-31)
[2024-02-07 21:50] LABS: BUN/Creatinine Ratio 12.4 (10.0-20.0); Blood Urea Nitrogen 31 mg/dL (9-23)
[2024-02-07 21:55] LABS: Glucose 216 mg/dL (74-106)
[2024-02-08 01:13] VITALS: BP 114/65; PULSE 61; RESP 18; TEMP 97.9; O2SAT 98
[2024-02-08 05:00] VITALS: BP 114/62; PULSE 60; RESP 18; TEMP 98.3; O2SAT 99
[2024-02-08 05:34] LABS: Alanine Aminotransferase 41 U/L (7-40); Albumin 3.9 g/dL (3.2-4.8); Alkaline Phosphatase 84 U/L (46-116); Anion Gap 8 (5-15); Aspartate Aminotransferase 40 U/L (13-40); BUN/Creatinine Ratio 12.9 (10.0-20.0); Blood Urea Nitrogen 29 mg/dL (9-23); Calcium 9.4 mg/dL (8.7-10.4); Carbon Dioxide 25 mmol/L (20-31); Chloride 103 mmol/L (98-107); Glucose 119 mg/dL (74-106); Potassium 3.4 mmol/L (3.5-5.1); Sodium 136 mmol/L (136-145)
[2024-02-08 05:35] LABS: Bilirubin, Total 0.5 mg/dL (0.2-1.0); Phosphorus 3.5 mg/dL (2.4-5.1); Total Protein 6.9 g/dL (5.7-8.2)
[2024-02-08 08:00] VITALS: PULSE 54; RESP 18; O2SAT 99
[2024-02-08 09:25] VITALS: BP 134/61; PULSE 56; RESP 18; TEMP 98.3; O2SAT 100
[2024-02-08 13:28] VITALS: BP 129/68; PULSE 57; RESP 18; TEMP 98.3; O2SAT 100
[2024-02-08] MEDS ORDERED: TICA90TA PO (16:08)
[2024-02-08 17:28] VITALS: BP 140/74; PULSE 60; RESP 18; TEMP 99; O2SAT 100
== END 2024-02-08 21:30 | disposition home health service (06) | DRG 321 ==
LOC: EDBD 11:45 → ER 11:47 → TELE 16:17 → ICU CENTRL 18:33 → TELE-CENTR 01-27 18:09
PROVIDERS: ADMIT Hospitalist; ATTEND Internal Medicine
PROC: 4A023N7 Measurement of Cardiac Sampling and Pressure, Left Heart, Percutaneous Approach (ICD-10-PCS; principal; 2024-01-25)
PROC: 027136Z Dilation of Coronary Artery, Two Arteries with Three Drug-eluting Intraluminal Devices, Percutaneous Approach (ICD-10-PCS; 2024-01-25)
PROC: 4A033BC Measurement of Arterial Pressure, Coronary, Percutaneous Approach (ICD-10-PCS; 2024-01-25)
PROC: B211YZZ Fluoroscopy of Multiple Coronary Arteries using Other Contrast (ICD-10-PCS; 2024-01-25)
PROC: B215YZZ Fluoroscopy of Left Heart using Other Contrast (ICD-10-PCS; 2024-01-25)
PROC: 0JH63XZ Insertion of Tunneled Vascular Access Device into Chest Subcutaneous Tissue and Fascia, Percutaneous Approach (ICD-10-PCS; 2024-02-01)
PROC: 02HV33Z Insertion of Infusion Device into Superior Vena Cava, Percutaneous Approach (ICD-10-PCS; 2024-02-01)
PROC: B5181ZA Fluoroscopy of Superior Vena Cava using Low Osmolar Contrast, Guidance (ICD-10-PCS; 2024-02-01)
PROC: B548ZZA Ultrasonography of Superior Vena Cava, Guidance (ICD-10-PCS; 2024-02-01)
PROC: 5A1D70Z Performance of Urinary Filtration, Intermittent, Less than 6 Hours Per Day (ICD-10-PCS; 2024-02-02)
PROC: 5A1D70Z Performance of Urinary Filtration, Intermittent, Less than 6 Hours Per Day (ICD-10-PCS; 2024-02-03)
DX: I21.4 Non-ST elevation (NSTEMI) myocardial infarction (principal); I50.33 Acute on chronic diastolic (congestive) heart failure; N17.0 Acute kidney failure with tubular necrosis; R57.0 Cardiogenic shock; I13.0 Hypertensive heart and chronic kidney disease with heart failure and stage 1 through stage 4 chronic kidney disease, or unspecified chronic kidney disease; I42.9 Cardiomyopathy, unspecified; G93.40 Encephalopathy, unspecified; E87.1 Hypo-osmolality and hyponatremia; E11.22 Type 2 diabetes mellitus with diabetic chronic kidney disease; E11.65 Type 2 diabetes mellitus with hyperglycemia; N18.9 Chronic kidney disease, unspecified; J44.9 Chronic obstructive pulmonary disease, unspecified; F32.A Depression, unspecified; K21.9 Gastro-esophageal reflux disease without esophagitis; E78.5 Hyperlipidemia, unspecified; E55.9 Vitamin D deficiency, unspecified; I25.10 Atherosclerotic heart disease of native coronary artery without angina pectoris; T50.8X5A Adverse effect of diagnostic agents, initial encounter; N14.11 Contrast-induced nephropathy; E87.6 Hypokalemia; Z80.3 Family history of malignant neoplasm of breast; Z82.49 Family history of ischemic heart disease and other diseases of the circulatory system; Z86.73 Personal history of transient ischemic attack (TIA), and cerebral infarction without residual deficits; Z95.1 Presence of aortocoronary bypass graft; Z90.49 Acquired absence of other specified parts of digestive tract; Z83.3 Family history of diabetes mellitus; Z87.11 Personal history of peptic ulcer disease; Z87.891 Personal history of nicotine dependence; Z95.5 Presence of coronary angioplasty implant and graft; Z88.0 Allergy status to penicillin; Z88.5 Allergy status to narcotic agent
CPT/HCPCS: 0523T; 36558; 76937; 77001; 92928; 92941; 93458; 96374; 96375; 96376; 99285; 36415; 36600; 70450; 71045; 71275; 76775; 80048; 80053; 80061; 80069; 80202; 80307; 80320; 81001; 82140; 82306; 82570; 82805; 82962; 83036; 83605; 83735; 83880; 83935; 83970; 84100; 84156; 84300; 84484; 85025; 85379; 85610; 85730; 86850; 86900; 86901; 87040; 87081; 87086; 87340; 90935; 93005; 94640; 97110; 97116; 97163; 97530; 99152; C1874; C1894; G0378; J1815; J1885; J2250; J2405; J3490; Q9967

== ENCOUNTER 2024-02-21 19:45 | Inpatient (IN) | payer OTHER ==
[~2024-02-21] VITALS: Ht 170.2 cm; Wt 92.4 kg
[~2024-02-21 19:45] MED LIST changes: -ALBUAER3 IN; -ATOR20TA50 PO; +BACL10TA PO; +CARV12.544 PO; -CLOP75TA70 PO; -DICY10CA55 PO; -ENAL1TAB42 PO; +HYDR25TA88 PO; +INSU1INJ14 SC; -INSUINJ37 SC; -LINA5TAB PO; -METF-372 PO; +METO1TAB9 PO; -METO25TA93 PO; +OXYC325T14 PO; +PANT40T PO; -PANTOPRAZOLE PO; -QUET100T47 PO; -RANO500T3 PO; +ROSU40TA47 PO; +SACU1TAB PO; -SERT-206 PO; -SIMV40TA18 PO; -SUCR1TAB PO; +TICA90TA PO; -TRAM50TA2 PO
[2024-02-22] VITALS (9 sets, daily range): BP systolic 110–159; BP diastolic 55–92; PULSE 58–81; RESP 17–19; TEMP 97.8–98.7; O2SAT 94–100
[2024-02-22] MEDS ORDERED: ONDANSETRON HCL 4 MG/2 ML VIAL IV PRN (02:30)
[2024-02-22] MEDS ORDERED: ACETAMINOPHEN 325 MG TAB PO PRN (02:30)
[2024-02-22] MEDS ORDERED: MORPHINE SULFATE INJ 2 MG/ml SYRG IV PRN (02:30)
[2024-02-22] MEDS ORDERED: DEXTROSE (50%) 50ML SYRG IV PRN (02:30)
[2024-02-22] MEDS: HEPARIN SODIUM (PORCINE) 5000 UNITS/ML 1ML VIAL IV ONE ×3 (02:30→12:12)
[2024-02-22] MEDS ORDERED: NITROGLYCERIN 0.4 MG SL TAB SL PRN (02:30)
[2024-02-22 03:38] LABS: Basophils # (auto) 0.1 10 ^3/uL (0-0.2); Basophils % (auto) 1.1 % (0.0-2.0); Eosinophils # (auto) 0.3 10 ^3/uL (0-0.8); Eosinophils % (auto) 5.4 % (0.0-7.0); Hematocrit 30.9 % (41.0-53.0); Hemoglobin 10.2 g/dL (13.5-17.5); Lymphocytes % (auto) 34.9 % (10.0-50.0); Mean Corpuscular Hemoglobin 28.2 pg (28.0-32.0); Mean Corpuscular Volume 85.6 fL (80.0-100.0); Monocytes # (auto) 0.5 10 ^3/uL (0-1.3); Monocytes % (auto) 8.3 % (0.0-12.0); Neutrophils # (auto) 2.9 10 ^3/uL (1.6-8.6); Neutrophils % (auto) 50.3 % (37.0-80.0); Nucleated Red Blood Cells % 0.1 %; Platelet Count (auto) 238 10^3/uL (140-450); Red Blood Cells 3.61 10^6/uL (4.5-5.90); Red Cell Distribution Width 13.4 % (11.8-14.3); White Blood Cell 5.7 10^3/uL (4.4-10.8)
[2024-02-22 03:48] LABS: Chloride 108 mmol/L (98-107); Potassium 4.3 mmol/L (3.5-5.1); Sodium 139 mmol/L (136-145)
[2024-02-22 03:49] LABS: Anion Gap 7 (5-15); Carbon Dioxide 24 mmol/L (20-31)
[2024-02-22 03:50] LABS: Calcium 9.6 mg/dL (8.7-10.4)
[2024-02-22 03:53] LABS: INR 1.08 (0.9-1.15); Partial Thromboplastin Time 27.3 SEC (24.5-34.5); Prothrombin Time 11.4 sec (9.3-11.8)
[2024-02-22 03:54] LABS: BUN/Creatinine Ratio 12.7 (10.0-20.0); Blood Urea Nitrogen 18 mg/dL (9-23); Glucose 113 mg/dL (74-106)
--- NOTE | 2024-02-22 04:35 | DVHHP2 ---
Admitting Diagnosis: chest pain History of Present Illness History Source: Patient Exam Limitations: No limitations HPI Mr. Justin Rodríguez is a 63 yo male with a history of hypertension, CAD, [place] stents x2 two weeks ago, DM, Chronic pain. Patient is a direct admit from [facility] for NSTEMI Troponin levels 0.050, 0.060, 0.040, Na 136, K 4.7, BUN 17/1.28, WBC 7.6, H&H 10.7/32.2, Platelets 260, CXR no acute disease, BNP 468. Patient had presented to [facility] ED with a chief complaint of non radiating chest pain. Patient reports he is compliant with his medications. Patient denies any chest pain, dyspnea, dizziness, abdominal pain, nausea, vomiting. Home Meds Active Scripts Ticagrelor Base (BRILINTA) 90 Mg Tab, 90 MG PO BID for 30 Days, #60 TAB Prov:BRYN AG MD 02/08/24 Furosemide (Lasix) 40 Mg Tab, 40 MG PO DAILY, #30 TAB Prov:BRYN AG MD 07/14/23 Reported Medications Rosuvastatin Calcium (Rosuvastatin Calcium) 40 Mg Tab, 40 MG PO DAILY, TAB 01/30/24 Hydralazine Hcl (Hydralazine Hcl) 25 Mg Tab, 25 MG PO BID, MG 01/30/24 Metoprolol Succinate (Metoprolol Succinate Er) 100 Mg Tab, 100 MG PO DAILY, TAB 01/30/24 Carvedilol (Carvedilol) 12.5 Mg Tab, 12.5 MG PO Q12HR, MG 01/30/24 Sacubitril-Valsartan (Entresto 24-26 mg) 1 Tab Tab, 1 TAB PO BID, TAB 01/30/24 Metoclopramide Hcl (Metoclopramide Hcl) 5 Mg Tab, 5 MG PO TID, MG 01/30/24 Oxycodone W/ Acetaminophen (Apap/Oxycodone) 1 Tab Tab, 1 TAB PO 6XD PRN for PAIN SCALE 7 THRU 10 for 30 Days, #180 TAB 01/30/24 Baclofen (Baclofen) 10 Mg Tab, 10 MG PO Q8HP PRN for CERVICALGIA, MG 01/30/24 Pantoprazole Sodium Sesquihydr (Pantoprazole Sodium) 40 Mg Tab, 40 MG PO DAILY, TAB 01/30/24 Insulin Degludec (Tresiba Flextouch) 100 Unit/Ml Inj, 60 UNIT SC HS, INJ 01/30/24 Aspirin (Aspirin Low Dose) 81 Mg Chw, 1 TAB PO DAILY, #30 TAB 3 Refills 01/27/14 Discontinued Reported Medications Carisoprodol (Soma) 350 Mg Tab, 350 MG PO TIDP PRN, TAB 07/07/14 Past Medical History Cardiac: CAD, HTN, [place] Pulmonary: No pertinent Hx Central Nervous System: No pertinent Hx GI: No pertinent Hx Hemotology/Oncology: No pertinent Hx Hepatobiliary: No pertinent Hx Psychiatric: No pertinent Hx Musculoskeletal: No pertinent Hx Rheumotologic: No pertinent Hx Infectious Disease: No peritnent Hx ENT: No pertinent Hx Renal/: No pertinent Hx Endocrine: No pertinent Hx Dermatology: No pertinent Hx Others chronic pain Patient Family History: Family history: Cardiovascular disease G8 FATHER, Onset:Unknown Family history: Diabetes mellitus G8 FATHER, Onset:Unknown Family history: Hypertension G8 FATHER, Onset:Unknown Malignant neoplasm of breast Smoker: No Hx (Negative) Alocohol: None Drugs: None Lives with: Other Domestic Violence: Neg Review of Systems Constitutional: No symptom reported Ears, Nose, & Throat: No symptom reported Eyes: No symptom reported Pulmonary/Respiratory: No symptom reported Cardiovascular: No symptom reported Gastrointestinal: No symptom reported Genitourinary: No symptom reported Musculoskeletal: No symptom reported Skin: No symptom reported Psychiatric: No symptom reported Endocrine: No symptom reported Hemotologic/Lymphatic: No symptom reported H&P Exam Vital Signs Vital Signs Date Time Temp Pulse Resp B/P (MAP) Pulse Ox O2 Delivery O2 Flow Rate FiO2 02/22/24 02:48 97.8 62 18 149/79 (102) 100 97.8 02/22/24 02:48 Room Air* 0 21 General Appeara: Well developed, Well nourished, Normal Appearance Head Exam: Normal inspection Neck Exam: Normal inspection, Non-tender, Normal alignment Eye Exam: bilateral eye Normal inspection, bilateral eye PERRL, bilateral eye EOMI Ear Exam: bilateral ear Auricle normal Nasal Exam: Normal inspection Mouth: Normal Inspection Pulmonary/Respiratory: Normal inspection, Normal breath sounds, Chest non- tender, Lungs clear Cardiovascular/Chest: Normal inspection, Regular rate, Normal Rhythm Peripheral Pulses: 2+ dorsalis pedis (R), 2+ dorsalis pedis (L), 2+ Radial (R), 2+ Radial (L) Abdominal Exam: Normal bowel sounds, Soft EDUCATION SPECIALIST Exam: Normal hearing, Normal speech, PERRL Neuro/Mental St: Alert, Oriented Appearance: Appropriate appearance, Appropriate insight Eye contact/ Speech: Cooperative, Good eye contact, Normal speech Thoughts/Psych: Normal thought pattern Skin Exam: Normal inspection, Normal color, Warm/dry Labs/Xrays Labs Test 02/22/24 03:24 Range/Units White Blood Count 5.7 4.4-10.8 10^3/uL Red Blood Count 3.61 L 4.5-5.90 10^6/uL Hemoglobin 10.2 L 13.5-17.5 g/dL Hematocrit 30.9 L 41.0-53.0 % Mean Corpuscular Volume 85.6 80.0-100.0 fL Mean Corpuscular Hemoglobin 28.2 28.0-32.0 pg Mean Corpuscular Hemoglobin Concent 33.0 32.0-36.0 g/dL Red Cell Distribution Width 13.4 11.8-14.3 % Platelet Count 238 140-450 10^3/uL Mean Platelet Volume 8.0 6.9-10.8 fL Neutrophils (%) (Auto) 50.3 37.0-80.0 % Lymphocytes (%) (Auto) 34.9 10.0-50.0 % Monocytes (%) (Auto) 8.3 0.0-12.0 % Eosinophils (%) (Auto) 5.4 0.0-7.0 % Basophils (%) (Auto) 1.1 0.0-2.0 % Neutrophils # (Auto) 2.9 1.6-8.6 10 ^3/uL Lymphocytes # (Auto) 2.0 0.4-5.4 10 ^3/uL Monocytes # (Auto) 0.5 0-1.3 10 ^3/uL Eosinophils # (Auto) 0.3 0-0.8 10 ^3/uL Basophils # (Auto) 0.1 0-0.2 10 ^3/uL Nucleated Red Blood Cells 0.1 % Prothrombin Time 11.4 9.3-11.8 sec Prothrombin Time INR 1.08 0.9-1.15 Activated Partial Thromboplast Time 27.3 24.5-34.5 SEC Sodium Level 139 136-145 mmol/L Potassium Level 4.3 3.5-5.1 mmol/L Chloride Level 108 H 98-107 mmol/L Carbon Dioxide Level 24 20-31 mmol/L Anion Gap 7 5-15 Blood Urea Nitrogen 18 9-23 mg/dL Creatinine 1.42 H 0.700-1.30 mg/dL Glomerular Filtration Rate Calc 56 >90 mL/min BUN/Creatinine Ratio 12.7 10.0-20.0 Serum Glucose 113 H 74-106 mg/dL Calcium Level 9.6 8.7-10.4 mg/dL Troponin I High Sensitivity 51 </=54 ng/L Assessment/Plan Problem List: (1) Elevated troponin Plan 63 yo male with known history of [place], HTN, CAD, DM presents with chest pain, patient found to have 1. elevated troponin levels Patient admitted to telemetry unit Cardiology consultation, 2D echo, ASA, Statin, serial troponin levels Continue home medications as needed Clear liquid diet Discussed all above with patient who verbalizes agreement and understanding of care plan. All questions were answered. Discussed assessment and care plan with supervising MD. Plan discussed with: Patient, Other Code Visit Code Visit Total Time (mins): 45 Additional Comments Additional Comments Additional Comments Patient was seen, evaluated and admitted by nurse practitioner earlier today. Chart is reviewed. I agree with nurse practitioner's elevation, documentation, assessment and care plan as outlined. RODRIGO MONTOYA Feb 22, 2024 04:35 MIRTA CHOI MD Feb 22, 2024 12:16
[2024-02-22] MEDS: HEPARIN DRIP/D5W 100UNITS/ML 250 ML IV SCH ×2 (05:59→19:39)
[2024-02-22] MEDS: InsuLIN REG 1unit/0.01ml Soln (100units/ml) SC SCH (06:44)
[2024-02-22] MEDS: ACCU-CHEK COMFORT CURVE STRIP VI SCH (06:44)
[2024-02-22] MEDS: TICAGRELOR 90 MG TAB PO SCH (09:46)
[2024-02-22] MEDS: CARVEDILOL 12.5 MG TAB PO SCH (09:46)
[2024-02-22] MEDS: ASPirin-EC 81 mg tab PO SCH (09:46)
[2024-02-22] MEDS: PANTOPRAZOLE 40 MG TAB PO SCH (09:46)
[2024-02-22] MEDS: HYDROcodone-ACET 5/325MG TAB PO PRN (09:50)
[2024-02-22 11:39] LABS: INR 1.09 (0.9-1.15); Partial Thromboplastin Time 33.3 SEC (24.5-34.5); Prothrombin Time 11.5 sec (9.3-11.8)
[2024-02-22] MEDS: BACLOFEN 10 MG TAB PO PRN (12:36)
[2024-02-22] MEDS: HYDROcodone-ACET 5/325MG TAB PO SCH (13:59)
[2024-02-22] MEDS: oxyCODONE ER 10 MG TAB PO PRN (16:49)
[2024-02-22 19:08] LABS: INR 1.13 (0.9-1.15); Prothrombin Time 11.9 sec (9.3-11.8)
[2024-02-22 19:14] LABS: Partial Thromboplastin Time 83.7 SEC (24.5-34.5)
[2024-02-22] MEDS: ATORVASTATIN 20 MG TAB PO SCH (21:56)
[2024-02-23 02:08] LABS: INR 1.06 (0.9-1.15); Partial Thromboplastin Time 47.8 SEC (24.5-34.5); Prothrombin Time 11.2 sec (9.3-11.8)
[2024-02-23] MEDS: HEPARIN DRIP/D5W 100UNITS/ML 250 ML IV SCH ×2 (03:15→11:52)
[2024-02-23 07:24] LABS: Basophils # (auto) 0 10 ^3/uL (0-0.2); Basophils % (auto) 0.8 % (0.0-2.0); Eosinophils # (auto) 0.3 10 ^3/uL (0-0.8); Eosinophils % (auto) 5.4 % (0.0-7.0); Hematocrit 30.3 % (41.0-53.0); Hemoglobin 10.1 g/dL (13.5-17.5); Lymphocytes # (auto) 1.5 10 ^3/uL (0.4-5.4); Lymphocytes % (auto) 27.3 % (10.0-50.0); Mean Corpuscular Hemoglobin 28.5 pg (28.0-32.0); Mean Corpuscular Hgb Conc. 33.3 g/dL (32.0-36.0); Mean Corpuscular Volume 85.6 fL (80.0-100.0); Monocytes # (auto) 0.5 10 ^3/uL (0-1.3); Monocytes % (auto) 9.6 % (0.0-12.0); Neutrophils # (auto) 3.2 10 ^3/uL (1.6-8.6); Neutrophils % (auto) 56.9 % (37.0-80.0); Platelet Count (auto) 223 10^3/uL (140-450); Red Blood Cells 3.54 10^6/uL (4.5-5.90); Red Cell Distribution Width 13.2 % (11.8-14.3); White Blood Cell 5.6 10^3/uL (4.4-10.8)
[2024-02-23 07:31] LABS: Chloride 108 mmol/L (98-107); Potassium 4.5 mmol/L (3.5-5.1); Sodium 140 mmol/L (136-145)
[2024-02-23 07:32] LABS: Anion Gap 11 (5-15); Carbon Dioxide 21 mmol/L (20-31)
[2024-02-23 07:33] LABS: Calcium 9.6 mg/dL (8.7-10.4)
[2024-02-23 07:37] LABS: BUN/Creatinine Ratio 11.9 (10.0-20.0); Blood Urea Nitrogen 17 mg/dL (9-23); Glucose 148 mg/dL (74-106)
[2024-02-23 08:00] VITALS: PULSE 50; PULSE 62; RESP 18; O2SAT 96
[2024-02-23 09:00] VITALS: BP 144/85; PULSE 54; RESP 16; TEMP 98.1; O2SAT 100
--- NOTE | 2024-02-23 10:31 | DVHSR ---
APPROVED REPORT EXAM: Two-dimensional and M-mode echocardiogram with Doppler and color Doppler. Blood Pressure: 156/79 mmHg INDICATION Chest Pain RISK FACTORS Height: 5'7", Weight: 207 DIMENSIONS LVDd6.0 (3.8-5.7cm)LA (2D)4.5 (1.9-4.0cm)Aortic Root3.4 (2.0-3.7cm) LVDs4.8 (2.5-4.0cm)LA (MM) (1.9-4.0cm)Aortic Cusp Exc1.9 (1.5-2.0cm) EF (%) 40.0 (55-70%)Rt. Atrium4.5 (1.9-4.0cm)Asc. Aorta3.7 cm IVSd1.5 (0.7-1.1cm)RV (D)4.6 (1.8-2.4cm) PWd0.9 (0.7-1.1cm) Mitral Valve MitralMitral Stenosis E wave0.63m/sMV Mean GR.mmHg A wave0.80m/sMV Peak GR.mmHg E/A ratio0.82D MVAcm2 DECEL [id number] 1/2 Timems Aortic Valve Aortic ValveAortic Stenosis V10.66m/Justo Mean GR.3mmHg V21.17m/Justo Peak GR.5mmHg LVOT Diameter2.6 (1.8-2.4cm)Doppler AVA2.99cm2 Pulmonic Valve V20.65m/s Other Information Quality : Technically LimitedRhythm : Technically limited study due to body habitus. Conclusion lvef 20-25% by visuale stimate severe global dysfunction lv dilated moderate lvh rv dysfunction noted left atrium enlarged
--- NOTE | 2024-02-23 11:06 | DVHINCON2 ---
Date of service: Feb 23, 2024 History of Present Illness 63 yo M with hx of cad s/p recent pci , htn, hl severe chf admitted for chest pain. pt taking dapt. trops are - Past Medical History reviewed Family History: Family history: Cardiovascular disease G8 FATHER, Onset:Unknown Family history: Diabetes mellitus G8 FATHER, Onset:Unknown Family history: Hypertension G8 FATHER, Onset:Unknown Malignant neoplasm of breast Allergies: Coded Allergies: Penicillins (Unverified Allergy, Unknown, 07/17/22) Morphine (Verified Adverse Reaction, Mild, ITCHING, 07/07/14) Home Meds Active Scripts Ticagrelor Base (BRILINTA) 90 Mg Tab, 90 MG PO BID for 30 Days, #60 TAB Prov:BRYN AG MD 02/08/24 Furosemide (Lasix) 40 Mg Tab, 40 MG PO DAILY, #30 TAB Prov:BRYN AG MD 07/14/23 Reported Medications Rosuvastatin Calcium (Rosuvastatin Calcium) 40 Mg Tab, 40 MG PO DAILY, TAB 01/30/24 Hydralazine Hcl (Hydralazine Hcl) 25 Mg Tab, 25 MG PO BID, MG 01/30/24 Metoprolol Succinate (Metoprolol Succinate Er) 100 Mg Tab, 100 MG PO DAILY, TAB 01/30/24 Carvedilol (Carvedilol) 12.5 Mg Tab, 12.5 MG PO Q12HR, MG 01/30/24 Sacubitril-Valsartan (Entresto 24-26 mg) 1 Tab Tab, 1 TAB PO BID, TAB 01/30/24 Metoclopramide Hcl (Metoclopramide Hcl) 5 Mg Tab, 5 MG PO TID, MG 01/30/24 Oxycodone W/ Acetaminophen (Apap/Oxycodone) 1 Tab Tab, 1 TAB PO 6XD PRN for PAIN SCALE 7 THRU 10 for 30 Days, #180 TAB 01/30/24 Baclofen (Baclofen) 10 Mg Tab, 10 MG PO Q8HP PRN for CERVICALGIA, MG 01/30/24 Pantoprazole Sodium Sesquihydr (Pantoprazole Sodium) 40 Mg Tab, 40 MG PO DAILY, TAB 01/30/24 Insulin Degludec (Tresiba Flextouch) 100 Unit/Ml Inj, 60 UNIT SC HS, INJ 01/30/24 Aspirin (Aspirin Low Dose) 81 Mg Chw, 1 TAB PO DAILY, #30 TAB 3 Refills 01/27/14 Discontinued Reported Medications Carisoprodol (Soma) 350 Mg Tab, 350 MG PO TIDP PRN, TAB 07/07/14 Current Medications Current Medications Medications (Trade) Dose Ordered Sig/Kellen Route PRN Reason Start Time Stop Time Status Last Admin Atorvastatin Calcium (Lipitor) 80 mg HS PO 02/22/24 22:00 02/22/24 21:56 Acetaminophen/ Hydrocodone Bitart ([place] 5/325MG Tab) 1 tab BID PO 02/22/24 13:00 02/22/24 14:33 DC 02/22/24 13:59 Oxycodone HCl (OxyCONTIN ER Tablet) 10 mg Q6HP PRN PO PAIN SCALE 7 THRU 10 02/22/24 14:30 02/23/24 10:05 Heparin Sodium/ Dextrose 250 ml @ 10.5 mls/hr [id number] IV 02/22/24 19:21 02/23/24 03:13 DC 02/23/24 02:37 Heparin Sodium/ Dextrose 250 ml @ 12.5 mls/hr Q20H IV 02/23/24 03:15 02/23/24 03:15 Review of Systems 10 pt ros otherwise negative Vital Signs Vital Signs Date Time Temp Pulse Resp B/P (MAP) Pulse Ox O2 Delivery O2 Flow Rate FiO2 02/23/24 10:04 62 144/85 02/23/24 09:00 98.1 16 100 98.1 02/23/24 08:00 Room Air* 0 21 Physical Exam nad s1 s2 irregular ctab soft nt/nd no edema Labs/Diagnostic Data Labs Test 02/23/24 10:30 02/23/24 06:37 02/23/24 06:16 02/22/24 18:05 Range/Units White Blood Count 5.6 4.4-10.8 10^3/uL Red Blood Count 3.54 L 4.5-5.90 10^6/uL Hemoglobin 10.1 L 13.5-17.5 g/dL Hematocrit 30.3 L 41.0-53.0 % Mean Corpuscular Volume 85.6 80.0-100.0 fL Mean Corpuscular Hemoglobin 28.5 28.0-32.0 pg Mean Corpuscular Hemoglobin Concent 33.3 32.0-36.0 g/dL Red Cell Distribution Width 13.2 11.8-14.3 % Platelet Count 223 140-450 10^3/uL Mean Platelet Volume 8.2 6.9-10.8 fL Neutrophils (%) (Auto) 56.9 37.0-80.0 % Lymphocytes (%) (Auto) 27.3 10.0-50.0 % Monocytes (%) (Auto) 9.6 0.0-12.0 % Eosinophils (%) (Auto) 5.4 0.0-7.0 % Basophils (%) (Auto) 0.8 0.0-2.0 % Neutrophils # (Auto) 3.2 1.6-8.6 10 ^3/uL Lymphocytes # (Auto) 1.5 0.4-5.4 10 ^3/uL Monocytes # (Auto) 0.5 0-1.3 10 ^3/uL Eosinophils # (Auto) 0.3 0-0.8 10 ^3/uL Basophils # (Auto) 0 0-0.2 10 ^3/uL Nucleated Red Blood Cells 0.0 % Sodium Level 140 136-145 mmol/L Potassium Level 4.5 3.5-5.1 mmol/L Chloride Level 108 H 98-107 mmol/L Carbon Dioxide Level 21 20-31 mmol/L Anion Gap 11 5-15 Blood Urea Nitrogen 17 9-23 mg/dL Creatinine 1.43 H 0.700-1.30 mg/dL Glomerular Filtration Rate Calc 55 >90 mL/min BUN/Creatinine Ratio 11.9 10.0-20.0 Serum Glucose 148 H 74-106 mg/dL Calcium Level 9.6 8.7-10.4 mg/dL POC Glucose 169 H 70-106 mg/dl Troponin I High Sensitivity 34 </=54 ng/L Assessment cad chf severe htn hl nyha class III systolic hf ckd Plan/Recommendation reviewd images, 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
[2024-02-23 11:22] LABS: INR 1.09 (0.9-1.15); Prothrombin Time 11.5 sec (9.3-11.8)
[2024-02-23 11:30] LABS: Partial Thromboplastin Time 45.9 SEC (24.5-34.5)
--- NOTE | 2024-02-23 12:56 | DVHDS2 ---
Discharge Summary Date of Admission Feb 22, 2024 at 02:31 Date of Discharge: Feb 23, 2024 Labs/Diagnostic Data: Laboratory Results Test 02/23/24 10:30 02/23/24 06:37 02/23/24 06:16 02/22/24 18:05 Prothrombin Time 11.5 sec (9.3-11.8) Prothrombin Time INR 1.09 (0.9-1.15) Activated Partial Thromboplast Time 45.9 SEC (24.5-34.5) White Blood Count 5.6 10^3/uL (4.4-10.8) Red Blood Count 3.54 10^6/uL (4.5-5.90) Hemoglobin 10.1 g/dL (13.5-17.5) Hematocrit 30.3 % (41.0-53.0) Mean Corpuscular Volume 85.6 fL (80.0-100.0) Mean Corpuscular Hemoglobin 28.5 pg (28.0-32.0) Mean Corpuscular Hemoglobin Concent 33.3 g/dL (32.0-36.0) Red Cell Distribution Width 13.2 % (11.8-14.3) Platelet Count 223 10^3/uL (140-450) Mean Platelet Volume 8.2 fL (6.9-10.8) Neutrophils (%) (Auto) 56.9 % (37.0-80.0) Lymphocytes (%) (Auto) 27.3 % (10.0-50.0) Monocytes (%) (Auto) 9.6 % (0.0-12.0) Eosinophils (%) (Auto) 5.4 % (0.0-7.0) Basophils (%) (Auto) 0.8 % (0.0-2.0) Neutrophils # (Auto) 3.2 10 ^3/uL (1.6-8.6) Lymphocytes # (Auto) 1.5 10 ^3/uL (0.4-5.4) Monocytes # (Auto) 0.5 10 ^3/uL (0-1.3) Eosinophils # (Auto) 0.3 10 ^3/uL (0-0.8) Basophils # (Auto) 0 10 ^3/uL (0-0.2) Nucleated Red Blood Cells 0.0 % Sodium Level 140 mmol/L (136-145) Potassium Level 4.5 mmol/L (3.5-5.1) Chloride Level 108 mmol/L (98-107) Carbon Dioxide Level 21 mmol/L (20-31) Anion Gap 11 (5-15) Blood Urea Nitrogen 17 mg/dL (9-23) Creatinine 1.43 mg/dL (0.700-1.30) Glomerular Filtration Rate Calc 55 mL/min (>90) BUN/Creatinine Ratio 11.9 (10.0-20.0) Serum Glucose 148 mg/dL (74-106) Calcium Level 9.6 mg/dL (8.7-10.4) POC Glucose 169 mg/dl (70-106) Troponin I High Sensitivity 34 ng/L (</=54) Other Laboratory Tests 02/23/24 06:37 Brief Hx & Hospital Course: Mr. Justin Rodríguez is a 63 yo male with a history of hypertension, CAD, [place] stents x2 two weeks ago, DM, Chronic pain. Patient is a direct admit from [facility] for [place]STEMI Troponin levels 0.050, 0.060, 0.040, Na 136, K 4.7, BUN 17/1.28, WBC 7.6, H&H 10.7/32.2, Platelets 260, CXR no acute disease, BNP 468. Patient had presented to [facility] ED with a chief complaint of non radiating chest pain. Patient reports he is compliant with his medications. Patient denies any chest pain, dyspnea, dizziness, abdominal pain, nausea, vomiting. Patient clinically remained stable. Evaluated by Cardiology. Recommended medical treatment and compliance with the oral fluid restriction and taking Lasix at home. Patient is also advised to take his medications for anxiety and chronic pain. Otherwise patient is medically treated. He heart rate normal without any cardiac arrhythmia. His echocardiogram did show poor ejection fraction with cardiomyopathy. Therefore patient once again educated regarding his heart failure and low ejection fraction. Advised to limit his oral fluid intake to 1200 mL per 24 hours. Advised to take Lasix and other home medications including aspirin and Brilinta as he is taking at home. Otherwise overall given patient is clinically stable without any symptoms feeling better ambulating not having any issues it is felt he could be safely discharged home. Patient verbalized understanding of his hospital diagnosis, treatment he received, discharge medications, discharge instructions and agree with the discharge follow-up plan of care. Operations or Procedures Conclusion lvef 20-25% by visuale stimkala severe global dysfunction lv dilated moderate lvh rv dysfunction noted left atrium enlarged SIGNED BY: JOSELITO WALLACE MD SIGNED DATE/TIME: 02/23/24 1031 Condition at Discharge: Stable Final Diagnosis/Problems List Acute chest pain, congestive cardiomyopathy, coronary artery disease Discharge Disposition: Home Discharge Instruct/Medications Diet: Consistent carbohydrate, Cardiac 2g Na,low cholest Diet comment: To restrict your total oral fluid intake to 1.2 L per 24 hours due to your heart failure. 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 Primary care physician in two weeks for heart failure management. Medications: Continue all home medications as you were taking including blood thinners for ureter stent placement. Continue taking water pill Lasix for your heart failure. Continue other medications as well. Continued Medications: Aspirin (Aspirin Low Dose) 81 Mg Chw 1 TAB PO DAILY, #30 TAB 3 Refills Baclofen (Baclofen) 10 Mg Tab 10 MG PO Q8HP PRN for CERVICALGIA, MG Carvedilol (Carvedilol) 12.5 Mg Tab 12.5 MG PO Q12HR, MG Furosemide (Lasix) 40 Mg Tab 40 MG PO DAILY, #30 TAB Hydralazine Hcl (Hydralazine Hcl) 25 Mg Tab 25 MG PO BID, MG Insulin Degludec (Tresiba Flextouch) 100 Unit/Ml Inj 60 UNIT SC HS, INJ Metoclopramide Hcl (Metoclopramide Hcl) 5 Mg Tab 5 MG PO TID, MG Metoprolol Succinate (Metoprolol Succinate Er) 100 Mg Tab 100 MG PO DAILY, TAB Oxycodone W/ Acetaminophen (Apap/Oxycodone) 1 Tab Tab 1 TAB PO 6XD PRN for PAIN SCALE 7 THRU 10 for 30 Days, #180 TAB Pantoprazole Sodium Sesquihydr (Pantoprazole Sodium) 40 Mg Tab 40 MG PO DAILY, TAB Rosuvastatin Calcium (Rosuvastatin Calcium) 40 Mg Tab 40 MG PO DAILY, TAB Sacubitril-Valsartan (Entresto 24-26 mg) 1 Tab Tab 1 TAB PO BID, TAB Ticagrelor Base (Brilinta) 90 Mg Tab 90 MG PO BID for 30 Days, #60 TAB Discharge Statement: "Patient was advised to return to the ER or call 911 if any headaches, dizziness, shortness of breath, chest pain, abdominal pain, bleeding, fevers, or worsening of medical condition. Patient was counseled about treatment plan, medications, possible side effects, patientverbalized understanding. All questions were answered to the best of my ability. This discharge took greater then 30 minutes in planning, reviewing documentation, counseling the patient, and discussing with other team members." ASSESSMENT ASSESSMENT Assessment Acute chest pain, congestive cardiomyopathy, coronary artery disease MIRTA CHOI MD Feb 23, 2024 12:56
[2024-02-23 13:00] VITALS: BP 134/73; PULSE 58; RESP 17; TEMP 97.8; O2SAT 99
== END 2024-02-23 16:35 | disposition home or self-care (01) | DRG 292 ==
LOC: TELE-CENTR 02-22 02:31
PROVIDERS: ADMIT Internal Medicine; ATTEND Internal Medicine
DX: I13.0 Hypertensive heart and chronic kidney disease with heart failure and stage 1 through stage 4 chronic kidney disease, or unspecified chronic kidney disease (principal); I50.42 Chronic combined systolic (congestive) and diastolic (congestive) heart failure; I42.0 Dilated cardiomyopathy; I25.10 Atherosclerotic heart disease of native coronary artery without angina pectoris; N18.9 Chronic kidney disease, unspecified; G89.29 Other chronic pain; F41.9 Anxiety disorder, unspecified; E11.22 Type 2 diabetes mellitus with diabetic chronic kidney disease; I25.2 Old myocardial infarction; Z82.49 Family history of ischemic heart disease and other diseases of the circulatory system; Z83.3 Family history of diabetes mellitus; Z80.3 Family history of malignant neoplasm of breast; Z98.61 Coronary angioplasty status; Z88.5 Allergy status to narcotic agent; Z88.0 Allergy status to penicillin
CPT/HCPCS: 36415; 80048; 82962; 84484; 85025; 85610; 85730; 93306; G0378; J1815